=== PATIENT | female | born 1965 | race Caucasian/White ===

== ENCOUNTER → 2018-02-02 08:15 | Outpatient (CLI) | payer OTHER, SELFPAY ==
--- NOTE | 2018-02-02 08:18 | BI_ITS ---
MAMMOGRAPHY - BILATERAL SCREENING REASON FOR EXAM: Female, 52 years old. Routine annual screening examination. PERTINENT HISTORY: Non-contributory. TECHNIQUE: Digital bilateral breast [place] (3D mammographic acquisition) in the CC and MLO projections. 2-D mediolateral oblique (MLO) and craniocaudad (CC) views of both breasts were obtained. CAD: Full Field Digital Mammography with Computer Added Detection was performed. COMPARISON: Comparison is made with prior examination dated November 02, 2016 and September 23, 2015. FINDINGS: Breast Composition: The breasts are extremely dense, which lowers the sensitivity of mammography. The previously seen well-defined nodular density in the upper retroareolar region of the left breast has increased in size. It presently measures 2.6 cm x 3.1 cm. This was demonstrated to be a cyst on prior sonograms. No other significant abnormalities are identified. BI/SCREENING MAMM (CAD), BILAT IMPRESSION: Increased size of the nodular density in the left breast as described. It presently measures 3.1 cm x 2.6 cm. ASSESSMENT CATEGORY: BIRADS Category 2: Benign. A letter regarding these results will be sent to the patient by the facility within 30 days. Approximately 10% of breast cancers are not detected by mammography. A normal mammogram should not delay biopsy of a clinically suspicious abnormality. [id number] Electronically Signed: Antonio Matthews MD at 13:14 EDT Tel [phone], Service support ,
== END ==
PROVIDERS: Family Provider Family Medicine; PCP Family Medicine; Visit Provider Family Medicine
DX: Z12.31 Encounter for screening mammogram for malignant neoplasm of breast (principal)
CPT/HCPCS: 77063; 77067

== ENCOUNTER → 2018-12-19 13:31 | Outpatient (CLI) | payer OTHER, SELFPAY ==
[2017-11-08 14:00] VITALS: BMI 21.9
--- NOTE | 2018-12-19 13:33 | RAD_ITS ---
STUDY: X-RAY - LEFT SHOULDER REASON FOR EXAM: Female, 53 years old. Pain TECHNIQUE: 4 view(s) of the shoulder. COMPARISON: None. FINDINGS: There is mild degenerative arthrosis of the glenohumeral articulation. There is degenerative arthrosis of the acromioclavicular joint without inferior osseous spur formation. Normal acromion. Normal humeral head and visualized proximal humerus. There is periarticular soft tissue calcification consistent with a calcific tendinitis. Normal visualized pulmonary apex. RAD/Shoulder min 2 Views IMPRESSION: Degenerative arthrosis with evidence of calcific rotator cuff tendinitis. No fracture or suspicious osseous lesion Electronically Signed: Raj Sierra MD at 13:51 EDT , Service support ,
== END ==
PROVIDERS: Family Provider Family Medicine; PCP Family Medicine; Referring Provider Orthopaedic Surgery; Visit Provider Orthopaedic Surgery
DX: S49.92XA Unspecified injury of left shoulder and upper arm, initial encounter (principal); X58.XXXA Exposure to other specified factors, initial encounter; M19.012 Primary osteoarthritis, left shoulder; M75.32 Calcific tendinitis of left shoulder
CPT/HCPCS: 73030

== ENCOUNTER → 2019-03-15 10:05 | Outpatient (CLI) | payer OTHER, SELFPAY ==
--- NOTE | 2019-03-15 10:08 | BI_ITS ---
MAMMOGRAPHY - BILATERAL SCREENING REASON FOR EXAM: Female, 53 years old. Routine annual screening examination. PERTINENT HISTORY: Non-contributory. History of bilateral breast aspirations. TECHNIQUE: Digital bilateral breast ir[place] (3D mammographic acquisition) in the CC and MLO projections. 2-D mediolateral oblique (MLO) and craniocaudad (CC) views of both breasts were obtained. CAD: Full Field Digital Mammography with Computer Added Detection was performed. COMPARISON: Comparison is made with prior study dated February 02, 2018 and November 02, 2016. FINDINGS: Breast Composition: The breasts are extremely dense, which lowers the sensitivity of mammography. There are no dominant masses or suspicious calcifications. The previously seen density in the retroareolar region of the left breast is not seen at this time. No other significant abnormalities are identified. BI/SCREEN MAMM (CAD) W/IRAM BILAT IMPRESSION: Stable bilateral screening mammogram. Yearly follow-up mammogram recommended. (A) ASSESSMENT CATEGORY: BIRADS Category 2: Benign. A letter regarding these results will be sent to the patient by the facility within 30 days. Approximately 10% of breast cancers are not detected by mammography. A normal mammogram should not delay biopsy of a clinically suspicious abnormality. [id number] Electronically Signed: Antonio Matthews, at 9:22 EDT , Service support ,
== END ==
PROVIDERS: Family Provider Family Medicine; PCP Family Medicine; Referring Provider Family Medicine; Visit Provider Family Medicine
DX: Z12.31 Encounter for screening mammogram for malignant neoplasm of breast (principal)
CPT/HCPCS: 77063; 77067

== ENCOUNTER → 2019-08-10 13:59 | Outpatient (CLI) | payer OTHER, SELFPAY ==
[2019-08-10 16:15] LABS: Hemoglobin A1c 5.9 % (4.2-6.3)
[2019-08-10 16:21] LABS: Cholesterol 206 mg/dL (200); High Density Lipoprotein 72 mg/dL; Triglycerides 66 mg/dL; Very Low Density Lipoprotein 13 mg/dL (5-40)
[2019-08-10 16:33] LABS: Hematocrit 43.7 % (37-47); Hemoglobin 14.1 g/dL (12.0-15.0); Mean Corp Hgb Conc 32.3 g/dL (32-36); Mean Corpuscular Hgb 28.7 pg (27.0-32.0); Mean Platelet Vol. 10.7 fl (6.2-12.0); Platelet Count 219 K/mm3 (150-450); RBC Distribution Width CV 13.2 % (11.6-14.6); RBC Distribution Width SD 43.1 fl (35.1-43.9); Red Blood Count 4.91 M/mm3 (4.2-5.4); White Blood Count 5.4 K/mm3 (4.4-11.0)
== END ==
PROVIDERS: Family Provider Family Medicine; PCP Family Medicine; Referring Provider Obstetrics & Gynecology; Visit Provider Obstetrics & Gynecology
DX: R68.82 Decreased libido (principal); L65.9 Nonscarring hair loss, unspecified; R63.5 Abnormal weight gain; R53.83 Other fatigue
CPT/HCPCS: 36415; 80061; 83036; 84443; 85027

== ENCOUNTER → 2019-10-13 08:58 | Outpatient (CLI) | payer OTHER, SELFPAY ==
[2017-11-08 14:00] VITALS: BMI 21.9
--- NOTE | 2019-10-13 09:00 | RAD_ITS ---
STUDY: X-RAY - RIGHT ANKLE REASON FOR EXAM: Female, 54 years old. MEDIAL ANKLE PAIN, NKI EXAM DESCRIPTION: Right ankle CLINICAL HISTORY: 54 years Female, MEDIAL ANKLE PAIN, NKI COMPARISON: None. FINDINGS: Studies of the right ankle in three projections shows no evidence of fracture, dislocation, or bony destruction. RAD/Ankle min 3 Views IMPRESSION: Normal right ankle. Electronically Signed: Burak Hiral, at 9:24 EST Tel , Service support ,
== END ==
PROVIDERS: PCP Family Medicine; Referring Provider Physician Assistant; Visit Provider Physician Assistant
DX: M25.571 Pain in right ankle and joints of right foot (principal)
CPT/HCPCS: 73610

== ENCOUNTER → 2020-04-29 07:39 | Outpatient (CLI) | payer OTHER, SELFPAY ==
[2019-10-13 09:47] VITALS: BMI 21.9
--- NOTE | 2020-04-29 07:45 | CT_ITS ---
STUDY: CT BRAIN WITHOUT CONTRAST REASON FOR EXAM: Female, 55 years old. HEADACHES, INTERMITTENTLY SMELLS SMOKE RADIATION DOSAGE (If Supplied By Facility): CTDIvol = ( 44.99 ) mGy, DLP = ( 745.49 ) mGycm TECHNIQUE: Transaxial CT imaging of the brain was performed without administration of intravenous contrast material. Individualized dose optimization techniques were used for this CT. COMPARISON: No relevant priors. FINDINGS: Normal soft tissue structures. Normal calvarium. Normal size ventricles and extra-axial spaces for the patient''s age. Normal white matter tracts of the cerebral hemispheres. There are small punctate calcifications of the basal ganglia which are seen in the aging brain as a normal variant. Normal brainstem. Normal cerebellum. There is no intracranial hemorrhage. There are no findings of an acute ischemic infarction. Normal visualized paranasal sinuses. CT/Brain/Head without Contrast IMPRESSION: Normal unenhanced CT scan of the brain. Electronically Signed: Antonio Mattehws, at 8:29 EDT , Service support ,
--- NOTE | 2020-04-29 08:01 | BI_ITS ---
MAMMOGRAPHY - BILATERAL SCREENING REASON FOR EXAM: Female, 55 years old. Routine annual screening examination. PERTINENT HISTORY: Non-contributory. History of prior bilateral breast aspirations. TECHNIQUE: Digital bilateral breast ir[place] (3D mammographic acquisition) in the CC and MLO projections. 2-D mediolateral oblique (MLO) and craniocaudad (CC) views of both breasts were obtained. CAD: Full Field Digital Mammography with Computer Added Detection was performed. COMPARISON: Comparison is made with prior study dated 03/15/2019 and 02/02/2018. FINDINGS: Breast Composition: The breasts are extremely dense, which lowers the sensitivity of mammography. There are no dominant masses or suspicious calcifications. No other significant abnormalities are identified. There has been no significant change since the prior study. BI/SCREEN MAMM (CAD) W/IRAM BILAT IMPRESSION: Stable bilateral screening mammogram. Yearly follow-up mammogram recommended. (A) ASSESSMENT CATEGORY: BIRADS Category 1: Negative. A letter regarding these results will be sent to the patient by the facility within 30 days. Approximately 10% of breast cancers are not detected by mammography. A normal mammogram should not delay biopsy of a clinically suspicious abnormality. [id number] Electronically Signed: Antonio Matthews, at 11:01 EDT , Service support ,
== END ==
PROVIDERS: PCP Family Medicine; Referring Provider Family Medicine; Visit Provider Family Medicine
DX: Z12.31 Encounter for screening mammogram for malignant neoplasm of breast (principal); R51 Headache
CPT/HCPCS: 70450; 77063; 77067

== ENCOUNTER → 2020-08-06 10:28 | Outpatient (CLI) | payer OTHER, SELFPAY ==
[2020-08-06 09:30] VITALS: BMI 25.7
[2020-08-06 11:22] LABS: Hematocrit 43.9 % (37-47); Mean Corp Hgb Conc 31.9 g/dL (32-36); Mean Corpuscular Hgb 28.9 pg (27.0-32.0); Mean Corpuscular Volume 90.7 fL (81-99); Mean Platelet Vol. 10.2 fl (6.2-12.0); Platelet Count 233 K/mm3 (150-450); RBC Distribution Width CV 13.5 % (11.6-14.6); RBC Distribution Width SD 45.3 fl (35.1-43.9); Red Blood Count 4.84 M/mm3 (4.2-5.4); White Blood Count 5.6 K/mm3 (4.4-11.0)
[2020-08-06 11:58] LABS: ALB/GLOB Ratio 1.1 RATIO (0.9-2.4); AST(SGOT) 20 U/L (15-37); Alanine Aminotransfer ALT/SGPT 36 U/L (13-56); Albumin, Serum 4.2 g/dL (3.2-5.0); Alkaline Phosphatase 77 U/L (45-117); Anion Gap 5 (5-15); BUN 19 mg/dL (7-18); BUN/Creat Ratio 26.2 RATIO (10-20); Calcium,Total 8.6 mg/dL (8.5-10.1); Chloride 107 mmol/L (98-107); Creatinine, Serum 0.72 mg/dL (0.55-1.02); EST Glomerular Filtration Rate 88 mL/min (>60); Est Glom Filt Rate - Afr Amer 107 mL/min (>60); Globulin 3.7 g/dL (2.2-4.2); Glucose 93 mg/dL (74-106); Potassium 4.1 mmol/L (3.5-5.1); Protein, Total 7.9 g/dL (6.4-8.2); Sodium Level 141 mmol/L (136-145); Thyroid Stim Hormone (TSH) 1.94 uIU/mL (0.358-3.74)
== END ==
PROVIDERS: PCP Family Medicine; Referring Provider Psychiatry & Neurology Neurology; Visit Provider Psychiatry & Neurology Neurology
DX: G43.909 Migraine, unspecified, not intractable, without status migrainosus (principal)
CPT/HCPCS: 36415; 80053; 84443; 85027

== ENCOUNTER → 2020-08-23 13:13 | Outpatient (CLI) | payer OTHER, SELFPAY ==
[2020-08-06 09:30] VITALS: BMI 25.7
--- NOTE | 2020-08-23 13:19 | MRI_ITS ---
STUDY: MRI BRAIN WITH AND WITHOUT CONTRAST REASON FOR EXAM: Female, 55 years old. H/A, olfactory auras x 2 years TECHNIQUE: Standardized multiplanar fat and water weighted pulse sequences were obtained. 12ml Dotarem via IV was administered for the contrast portion of the examination. COMPARISON: 07/01/2012 FINDINGS: Normal size of the ventricles and extra-axial spaces for the patient''s age. Normal white matter tracts of the supratentorial brain. There is no evidence for recent intracranial ischemia or other cause of cytotoxic edema on diffusion weighted imaging (DWI). Normal T2* images of the brain without demonstrated susceptibility artifact. There is no demonstrated hemosiderin stain. Normal bilateral basal ganglia. Normal thalami. There is no extra-axial fluid accumulation. Normal flow voids within the major intracranial circulation suggesting patency by spin echo criteria. Normal venous enhancement. There is no enhancing intra-axial or extra-axial abnormality. Normal sella turcica, pituitary gland, infundibular stalk, optic chiasm and hypothalamus. Normal tectal plate and pineal gland. Normal midbrain, pippa and medulla. Normal cerebellum. Normal basal cisterns. Normal bilateral temporal bones. Normal bilateral internal auditory canals. No demonstrated orbital abnormality, within the constraints of a routine brain study. Normal visualized paranasal sinuses. Normal calvarium and skull base. Normal visualized soft tissue structures. Normal visualized upper cervical spine. MRI/Brain W/WO Contrast IMPRESSION: Normal unenhanced and enhanced MRI of the brain. Electronically Signed: Charles Tobar MD at 15:11 EST Tel , Service support ,
== END ==
PROVIDERS: PCP Family Medicine; Referring Provider Psychiatry & Neurology Neurology; Visit Provider Psychiatry & Neurology Neurology
DX: R43.1 Parosmia (principal); R51.9 Headache, unspecified
CPT/HCPCS: 70553; A9575

== ENCOUNTER → 2020-09-27 06:24 | Outpatient (CLI) | payer OTHER, SELFPAY ==
[2020-08-06 09:30] VITALS: BMI 25.7
--- NOTE | 2020-09-27 08:30 | TELEMED_ITS ---
[facility] has confirmed receipt of a request for visit. This document confirms receipt of the order initiating the consult. To find the results of the consultation, please view the patient's reports for the scanned Telemed Consult.
== END ==
PROVIDERS: PCP Family Medicine; Referring Provider Psychiatry & Neurology Neurology; Visit Provider Psychiatry & Neurology Neurology
DX: R43.1 Parosmia (principal); R51.9 Headache, unspecified
CPT/HCPCS: 95819

== ENCOUNTER 2021-09-08 14:18 | Outpatient (CLI) | payer BC, SELFPAY ==
--- NOTE | 2021-09-08 14:20 | BI_ITS ---
MAMMOGRAPHY - BILATERAL SCREENING REASON FOR EXAM: Female, 56 years old. Routine annual screening examination. PERTINENT HISTORY: Non-contributory. History of prior right breast biopsy in prior bilateral breast aspiration. TECHNIQUE: Digital bilateral breast ir[place] (3D mammographic acquisition) in the CC and MLO projections. 2-D mediolateral oblique (MLO) and craniocaudad (CC) views of both breasts were obtained. CAD: Full Field Digital Mammography with Computer Added Detection was performed. COMPARISON: Comparison is made with prior examination dated 04/29/2020 and 03/15/2019. FINDINGS: Breast Composition: The breasts are extremely dense, which lowers the sensitivity of mammography. There are no dominant masses or suspicious calcifications. No other significant abnormalities are identified. There has been no significant change since the prior study. BI/SCRN MAMM (CAD)W/IRAM BILAT IMPRESSION: Stable bilateral screening mammogram. Yearly follow-up mammogram recommended. (A) ASSESSMENT CATEGORY: BIRADS Category 1: Negative. A letter regarding these results will be sent to the patient by the facility within 30 days. Approximately 10% of breast cancers are not detected by mammography. A normal mammogram should not delay biopsy of a clinically suspicious abnormality. [id number] Electronically Signed: Antonio Matthews MD at 20:24 EST , Service support ,
== END 2021-09-08 23:59 | disposition short-term general hospital (02) ==
LOC: OPBI 14:18
PROVIDERS: PCP Family Medicine; Visit Provider Family Medicine
DX: Z12.31 Encounter for screening mammogram for malignant neoplasm of breast (principal)
CPT/HCPCS: 77063; 77067

== ENCOUNTER → 2022-12-31 | Outpatient (CLI) | payer BC, SELFPAY ==
[2022-12-31 12:35] LABS: Absolute Lymphocyte Count 1.89 X10^3/uL (0.83-4.51); Basophil# 0.02 X10^3/uL; Basophil% 0.5 % (0-1); Eosinophil# 0.07 X10^3/uL; Eosinophils% 1.6 % (0-5); Hemoglobin 13.6 g/dL (12.0-15.0); Lymphocyte # 1.89 X10^3/ul (0.83-4.51); Lymphocyte % 42.8 % (19-41); Mean Corp Hgb Conc 31.6 g/dL (32-36); Mean Corpuscular Hgb 29.1 pg (27.0-32.0); Mean Corpuscular Volume 92.1 fL (81-99); Monocyte# 0.43 X10^3/uL; Monocyte% 9.7 % (0-10); NRBC Flagged by Analyzer 0 % (0-5); Neutrophil % 45.2 % (47-70); Platelet Count 240 K/mm3 (150-450); RBC Distribution Width CV 13.9 % (11.6-14.6); RBC Distribution Width SD 47.3 fl (35.1-43.9); Red Blood Count 4.67 M/mm3 (4.2-5.4); White Blood Count 4.4 K/mm3 (4.4-11.0)
[2022-12-31 12:57] LABS: ALB/GLOB Ratio 1.2 RATIO (0.9-2.4); AST(SGOT) 22 U/L (15-37); Alanine Aminotransfer ALT/SGPT 39 U/L (13-56); Albumin, Serum 4.3 g/dL (3.2-5.0); Alkaline Phosphatase 82 U/L (45-117); Anion Gap 5 (5-15); BUN 20 mg/dL (7-18); BUN/Creat Ratio 26.4 RATIO (10-20); Calcium,Total 9.1 mg/dL (8.5-10.1); Chloride 108 mmol/L (98-107); Cholesterol 202 mg/dL (200); Creatinine, Serum 0.76 mg/dL (0.55-1.02); EST Glomerular Filtration Rate 83 mL/min (>60); Est Glom Filt Rate - Afr Amer 101 mL/min (>60); Free T3 2.7 pg/mL (2.18-3.98); Globulin 3.7 g/dL (2.2-4.2); Glucose 95 mg/dL (74-106); High Density Lipoprotein 64 mg/dL; Sodium Level 141 mmol/L (136-145); T4 Free Direct 0.95 ng/dL (0.76-1.46); Thyroid Stim Hormone (TSH) 1.04 uIU/mL (0.358-3.74); Triglycerides 83 mg/dL; Very Low Density Lipoprotein 17 mg/dL (5-40)
[2022-12-31 13:12] LABS: Microalbumin,Random Urine 42.6 mg/L (NO RANGE EST.); Microalbumin:Creatinine Ratio 25.2 mg/g CRE (<30 mg/g CRE)
== END | disposition home or self-care (01) ==
LOC: BFHLAB 10:30
PROVIDERS: PCP Family Medicine; Referring Provider Family Medicine; Visit Provider Family Medicine
DX: Z51.81 Encounter for therapeutic drug level monitoring (principal); R53.83 Other fatigue; E78.5 Hyperlipidemia, unspecified; R00.9 Unspecified abnormalities of heart beat; R03.0 Elevated blood-pressure reading, without diagnosis of hypertension
CPT/HCPCS: 36415; 80053; 80061; 82043; 82570; 84439; 84443; 84481; 85025

== ENCOUNTER → 2023-01-12 | Outpatient (CLI) | payer BC, SELFPAY ==
--- NOTE | 2023-01-12 07:17 | BI_ITS ---
MAMMOGRAPHY - BILATERAL SCREENING REASON FOR EXAM: Female, 57 years old. Routine annual screening examination. PERTINENT HISTORY: Non-contributory. History of prior bilateral breast aspirations. TECHNIQUE: Digital bilateral breast ir[place] (3D mammographic acquisition) in the CC and MLO projections. 2-D mediolateral oblique (MLO) and craniocaudad (CC) views of both breasts were obtained. CAD: Full Field Digital Mammography with Computer Added Detection was performed. COMPARISON: Comparison is made with prior study dated September 08, 2021 and April 29, 2020. FINDINGS: Breast Composition: The breasts are extremely dense, which lowers the sensitivity of mammography. There are no dominant masses or suspicious calcifications. No other significant abnormalities are identified. There has been no significant change since the prior study. BI/SCRN MAMM (CAD)W/IRAM BILAT IMPRESSION: Stable bilateral screening mammogram. Yearly follow-up mammogram recommended. (A) ASSESSMENT CATEGORY: BIRADS Category 1: Negative. A letter regarding these results will be sent to the patient by the facility within 30 days. Approximately 10% of breast cancers are not detected by mammography. A normal mammogram should not delay biopsy of a clinically suspicious abnormality. [id number] Electronically Signed: Antonio Matthews MD at 11:00 EDT ,
== END | disposition home or self-care (01) ==
LOC: OPBI 07:15
PROVIDERS: PCP Family Medicine; Referring Provider Family Medicine; Visit Provider Family Medicine
DX: Z12.31 Encounter for screening mammogram for malignant neoplasm of breast (principal)
CPT/HCPCS: 77063; 77067

== ENCOUNTER → 2024-01-12 | Outpatient (CLI) | payer BC, SELFPAY ==
[2024-01-12 12:44] LABS: Absolute Lymphocyte Count 1.49 X10^3/uL (0.83-4.51); Absolute Neutrophil Count 2.2 X10^3/uL (2.0-7.7); Basophil# 0.03 X10^3/uL; Basophil% 0.7 % (0-1); Eosinophil# 0.07 X10^3/uL; Eosinophils% 1.6 % (0-5); Hematocrit 42.7 % (37-47); Hemoglobin 13.6 g/dL (12.0-15.0); Lymphocyte # 1.49 X10^3/ul (0.83-4.51); Mean Corp Hgb Conc 31.9 g/dL (32-36); Mean Corpuscular Hgb 29.1 pg (27.0-32.0); Mean Corpuscular Volume 91.2 fL (81-99); Mean Platelet Vol. 10.5 fl (6.2-12.0); Monocyte# 0.43 X10^3/uL; Monocyte% 10.1 % (0-10); NRBC Flagged by Analyzer 0 % (0-5); Neutrophil # 2.23 X10^3/uL (2.7-7.7); Neutrophil % 52.4 % (47-70); Platelet Count 248 K/mm3 (150-450); RBC Distribution Width CV 13.8 % (11.6-14.6); RBC Distribution Width SD 46.4 fl (35.1-43.9); Red Blood Count 4.68 M/mm3 (4.2-5.4); White Blood Count 4.3 K/mm3 (4.4-11.0)
[2024-01-12 13:29] LABS: ALB/GLOB Ratio 1.2 RATIO (0.9-2.4); AST(SGOT) 22 U/L (15-37); Alanine Aminotransfer ALT/SGPT 34 U/L (13-56); Albumin, Serum 4.2 g/dL (3.2-5.0); Alkaline Phosphatase 77 U/L (45-117); Anion Gap 8 (5-15); BUN 17 mg/dL (7-18); BUN/Creat Ratio 20.8 RATIO (10-20); Calcium,Total 8.9 mg/dL (8.5-10.1); Chloride 108 mmol/L (98-107); Creatinine, Serum 0.82 mg/dL (0.55-1.02); EST Glomerular Filtration Rate 76 mL/min (>60); Est Glom Filt Rate - Afr Amer 92 mL/min (>60); Globulin 3.6 g/dL (2.2-4.2); Glucose 95 mg/dL (74-106); Potassium 3.8 mmol/L (3.5-5.1); Protein, Total 7.8 g/dL (6.4-8.2); Sodium Level 141 mmol/L (136-145)
[2024-01-12 15:44] LABS: Vitamin D,25 Hydroxy 52.5 ng/mL
== END | disposition home or self-care (01) ==
LOC: BFHLAB 10:09
PROVIDERS: PCP Family Medicine; Referring Provider Family Medicine; Visit Provider Family Medicine
DX: Z01.818 Encounter for other preprocedural examination (principal); E55.9 Vitamin D deficiency, unspecified; Z51.81 Encounter for therapeutic drug level monitoring
CPT/HCPCS: 36415; 80053; 82306; 85025

== ENCOUNTER → 2024-02-02 | Outpatient (CLI) | payer BC, OTHER, SELFPAY ==
--- NOTE | 2024-02-02 07:10 | BI_ITS ---
MAMMOGRAPHY - BILATERAL SCREENING REASON FOR EXAM: Female, 58 years old. Routine annual screening examination. PERTINENT HISTORY: Non-contributory. History of prior breast aspirations. TECHNIQUE: Digital bilateral breast ir[place] (3D mammographic acquisition) in the CC and MLO projections. 2-D mediolateral oblique (MLO) and craniocaudad (CC) views of both breasts were obtained. CAD: Full Field Digital Mammography with Computer Added Detection was performed. COMPARISON: Comparison is made with prior study of January 12, 2023 and September 08, 2021. FINDINGS: Breast Composition: The breasts are extremely dense, which lowers the sensitivity of mammography. There are no dominant masses or suspicious calcifications. No other significant abnormalities are identified. There has been no significant change since the prior study. BI/SCRN MAMM (CAD)W/IRAM BILAT IMPRESSION: Stable bilateral screening mammogram. Yearly follow-up mammogram recommended. (A) ASSESSMENT CATEGORY: BIRADS Category 1: Negative. A letter regarding these results will be sent to the patient by the facility within 30 days. Approximately 10% of breast cancers are not detected by mammography. A normal mammogram should not delay biopsy of a clinically suspicious abnormality. [id number] Electronically Signed: Antonio Matthews MD at 8:25 EDT ,
== END | disposition home or self-care (01) ==
LOC: OPBI 07:07
PROVIDERS: PCP Family Medicine; Referring Provider Family Medicine; Visit Provider Family Medicine
DX: Z12.31 Encounter for screening mammogram for malignant neoplasm of breast (principal)
CPT/HCPCS: 77063; 77067

== ENCOUNTER 2024-02-11 09:20 | Day surgery (SDC) | payer BC, OTHER, SELFPAY ==
[2024-02-05 10:30] LABS: Magnesium 2.4 mg/dL (1.6-2.6)
[2024-02-11] VITALS (8 sets, daily range): BP systolic 120–141; BP diastolic 69–91; PULSE 58–76; RESP 14–62; TEMP 36.1–36.6; O2SAT 93–100; BMI 25.3
--- NOTE | 2024-02-11 09:40 | PCM.PRE.AN2 ---
ASA Classification* ASA Classification ASA Classification: 2 Assessment & Plan Anesthesia* Anesthesia Assessment Anesthesia Assessment: Discussed sedation and/or anesthesia options, risks, benefits, and alternatives with patient/parents/legal guardian/POA. Questions invited. The patient/parents/legal guardian/POA seems to understand and agrees to proceed with anesthesia plan. Reviewed the physical assessment, medical history, allergy history and patient home medications list prior to surgery/procedure/anesthetic and documented any changes. Performed airway and anesthesia risk assessments. Anesthesia Type Anesthesia Type: General (see written pre anesthesia record for full assessment) Anesthesia Focused Assessment* Airway Assessment Mouth opens: >3 cm Mallampati Score: II Focused Labs Anesthesia Preop lab: CBC WBC 4.3 K/mm3 (4.4-11.0) L 01/12/24 10:11 RBC 4.68 M/mm3 (4.2-5.4) 01/12/24 10:11 Hgb 13.6 g/dL (12.0-15.0) 01/12/24 10:11 Hct 42.7 % (37-47) 01/12/24 10:11 Plt Count 248 K/mm3 (150-450) 01/12/24 10:11 CHEMISTRY Potassium 3.8 mmol/L (3.5-5.1) 01/12/24 10:11 Sodium 141 mmol/L (136-145) 01/12/24 10:11 Magnesium 2.4 mg/dL (1.6-2.6) 02/05/24 09:56 BUN 17 mg/dL (7-18) 01/12/24 10:11 Creatinine 0.82 mg/dL (0.55-1.02) 01/12/24 10:11 Glucose 95 mg/dL (74-106) 01/12/24 10:11 TSH 1.04 uIU/mL (0.358-3.74) 12/31/22 10:30 COAG Pre-Assessment Diagnosis/Proposed Procedure Planned Operative Procedure(s): RIGHT FOOT MIDTARSAL JOINT ARTHRODESIS WITH CAPSULOTOMY OF FIRST METATARSAL PHALANGEAL JOINT,HARVEST OF CALCANEAL BONE GRAFT,MANUAL STRESS VIEWS,KOREY OSTEOTOMY OF SECOND METATARSAL AND SECOND PROXIMAL INTERPHALANGEAL JOINT ARTHRODESIS Anesthesia History 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 When Was Last Pacemaker Check QUESTION #4 FULL TEXT: You/Your Family Experience fever (hyperthermia) with Anesthesia Last Oral Intake Last Oral intake: Last Oral Intake NPO since Meds taken in AM with sips of water? Meds patient instructed to take am of surgery PONV PONV - production control expert: PONV - production control expert Female Yes 02/04/24 13:12 HX of Motion Sickness No 02/04/24 13:12 HX of N/V After Surgery No 02/04/24 13:12 Non-Smoker Yes 02/04/24 13:12 Duration of Surgery greater Yes 02/04/24 13:12 than 60 minutes Number of Risk Factors 3 02/04/24 13:12 PONV Score Moderate Risk 02/04/24 13:12 Height & Weight Height & Weight: Anesthesia: Height & Weight Height 5 ft 3 in 02/10/24 07:37 Weight: 61.235 kg 02/10/24 07:37 Respiratory Assessment Respiratory Assessment - production control expert: Respiratory Tract Infection Hx - production control expert Hx Respiratory Tract Infection No 02/04/24 13:12 STOP Sleep Apnea STOP Sleep Apnea - production control expert: STOP Sleep Apnea - production control expert Hx Hypertension Yes: CONTROLLED WITH MED 02/04/24 13:12 Hx Sleep Apnea No 02/04/24 13:12 CPAP BIPAP Do you snore loudly (louder No 02/04/24 13:12 than talking or can be heard Do you often feel tired/ No 02/04/24 13:12 fatigued/ sleepy during daytime? Has anyone observed you stop No 02/04/24 13:12 breathing during sleep? STOP Results Negative 02/04/24 13:12 QUESTION #5 FULL TEXT : Do you snore loudly (louder than talking or can be heard through closed doors)? 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 Specify any problems Hx of Preganancy in last 3 No 02/04/24 13:12 Months Nurse Filling Out Transfusion DSCHRIBER 02/04/24 13:12 & Questions: Date: 02/04/24 02/04/24 13:12 Time: 13:13 02/04/24 13:12 Patient unable to answer at this time (ie. confused, unrespo /Reproduction History /Reproductive History - production control expert: /Reproductive Hx- production control expert Hx Now No 02/04/24 13:12 Gestational Age (in weeks): EDC: Hx Hx Para Hx Section SAB No 02/04/24 13:12 Active Medications Active Medications: Current Medications Generic Name Dose Route Start Last Admin Trade Name Freq PRN Reason Stop Dose Admin Acetaminophen 1,000 mg 02/11/24 11:30 Acetaminophen 500 Mg Tablet PO 02/11/24 11:31 X1 ONE Gabapentin 600 mg 02/11/24 11:30 Gabapentin 600 Mg Tablet PO 02/11/24 11:31 X1 ONE Cefazolin Sodium 2 gm/ Sodium 110 mls @ 150 mls/hr 02/11/24 11:30 Chloride IV 02/11/24 12:13 PREOP ONE Magnesium Sulfate 1 gm/ 102 mls @ 408 mls/hr 02/11/24 11:30 Dextrose IV 02/11/24 11:44 X1 ONE Lactated Ringer's 1,000 mls @ 15 mls/hr 02/11/24 09:30 IV .Q48H HUGH Insulin Human Lispro 1 - 6 unit 02/11/24 11:30 Insulin Lispro 100 Unit/Ml Insuln.Pen SC 02/11/24 17:00 Q4H PRN PRN BG>/= 180, SEE PROTOCOL Protocol PFSH Medical History Wears contact lenses Wears glasses Post-menopausal Anemia Non-smoker History of stress test Hypertension Home Medications ?Medication ?Instructions ?Recorded ?Last Taken ?Type biotin 1 mg capsule 2 mg PO DAILY 08/06/20 Unknown History multivitamin 1 tab PO DAILY 12/11/22 Unknown History ascorbic acid (vitamin C) 500 mg 500 mg PO DAILY 02/04/24 Unknown History tablet,extended release (C-500) cholecalciferol (vitamin D3) 25 25 mcg PO DAILY 02/04/24 Unknown History mcg (1,000 unit) capsule (Vitamin D3) coenzyme Q10 100 mg capsule 100 mg PO DAILY 02/04/24 Unknown History (CoQ-10) losartan 50 mg-hydrochlorothiazide 1 tab PO DAILY 02/04/24 Unknown History 12.5 mg tablet magnesium 250 mg tablet 250 mg PO DAILY 02/04/24 Unknown History zinc gluconate 50 mg tablet 50 mg PO DAILY 02/04/24 Unknown History Allergy/AdvReac Type Severity Reaction Status Date / Time Sulfa (Sulfonamide Allergy unknown Verified 02/04/24 13:07 Antibiotics) Family History Mother Hypertension Surgical History History of partial hysterectomy Social History Smoking Status: Never smoker Electronic Cigarette Use: not used second hand exposure: No alcohol intake: never substance use type: does not use Review of Systems (Anesthesia) ROS Narrative System reviewed and no additional complaints, except as documented.
[2024-02-11] MEDS: Lactated Ringers 1,000 ML 15 ML IV (09:56)
[2024-02-11] MEDS: Gabapentin 600 MG Tablet PO (09:57)
[2024-02-11] MEDS: Magnesium 1 GM over 15 mins IV (09:57)
[2024-02-11] MEDS: Acetaminophen 500 MG Tablet 1000 MG PO (09:58)
[2024-02-11] MEDS: Insulin Lispro 100 UNIT/ML INSULN.PEN SC (10:06)
--- NOTE | 2024-02-11 10:30 | RAD_ITS ---
STUDY: X-RAY - RIGHT FOOT CLINICAL: Female, 58 years old. Midfoot arthrodesis. Intraoperative digital documentation views. TECHNIQUE: 9 intraoperative digital documentation view(s) of the foot. COMPARISON: Foot x-rays dated February 20, 2004 FINDINGS: Intraoperative digital documentation images show fusion at the PIP joint of the second digit. RAD/Foot min 3 Views IMPRESSION: Intraoperative digital documentation views. Electronically Signed: Wilson Lugo MD at 15:07 EDT ,
[2024-02-11] MEDS: Cefazolin 2 GM in 0.9% Normal Saline (100mL Bag) 100 ML IV (12:05)
--- NOTE | 2024-02-11 12:06 | OP.PCM_ITS ---
Problems Associated Problem List Diagnoses (1) Hallux valgus (acquired), right foot: (2) Primary osteoarthritis, right ankle and foot: (3) Other deformities of toe(s) (acquired), right foot: (4) Contracture, right foot: (5) Pain in right foot: (6) Chronic pain of toe of right foot: Report of Operation Date of Procedure: 02/11/24 Pre-Operative Diagnosis: 1. Hallux valgus, right foot 2. Osteoarthritis, right foot and ankle 3. Other deformity of toes, second digit, right foot 4. Contracture, right foot 5. Pain, right foot 6. Chronic pain of toe, right foot Post-Operative Diagnosis: 1. Hallux valgus, right foot 2. Osteoarthritis, right foot and ankle 3. Other deformity of toes, second digit, right foot 4. Contracture, right foot 5. Pain, right foot 6. Chronic pain of toe, right foot Surgery/Procedure Performed:: 1. Arthrodesis of midtarsal joint, first tarsometatarsal joint, right foot 2. Capsulotomy first metatarsophalangeal joint, right foot 3. Sentinel of calcaneal bone graft, right foot 4. Stress views, right foot 5. Second digit proximal interphalangeal joint arthrodesis, right foot Description of Surgical Findings:: 1. Good anatomic reduction of hallux valgus and abductor deformity, right foot 2. Good reduction and correction with apposition of the second digit hammertoe correction, right foot Surgeon: Demetris Rivera orthopedic coder: Inocencia Cali Type of Anesthesia: Block,Regional, General and Local Anesthesiologist: Tripp Folres Special Medications: Per anesthesia Specimen's removed: None Drains: None Estimated Blood Loss (mL): 30 mL Fluids Replaced: Per anesthesia Description of Procedure: Indications For Operation: Ms. Hall is a 58-year-old female who was admitted to [facility] for elective bunion corrective and hammer toe surgery to the right foot. Patient is well-known to my practice and was seen in office for surgical consultation with all risk and benefits discussed with the patient in great detail. Patient originally presented with chronic pain with valgus deformity and hammer toe 2nd digit to her right foot. Patient has failed all conservative methods consisting of shoe gear modification, treatment with padding, strapping and other types of treatment consisting of oral anti-inflammatories without success. Patient has failed all conservative treatment at this time. We are recommending surgical intervention. The patient does understand all risk, benefits and complications for the surgical procedure. All questions have been answered to the patient with great detail. Due to right lower extremity deformity it has been deemed necessary at this time to take the patient to the operating room to perform the above procedure to decrease her constant pain. The nature of the problem, anticipated procedures, postop recovery/convalences and risk/complications include but not limited to infection, wound healing complications, digital amputation, hypertrophic scarring, numbness, tingling, chronic pain, CRPS, over and under correction, recurrence of deformity, DVT and or PE and the need for further surgery have been discussed in great detail with the patient. All questions have been answered to the patient's satisfaction. There are no guarantees given as to the outcome of the procedure. Description of Procedure: Under mild sedation, the patient was brought into the operating room and placed on the operating table in supine position. Once the patient was under general anesthesia with laryngeal mask airway, the right lower extremity was blocked using approximately 10 cc 0.5% Marcaine plain to the saphenous nerve. Patient has received popliteal block per anesthesia and holding prior to the procedure. Please see anesthesia notes for further detail. Next, a well-padded thigh tourniquet was applied to the right lower extremity. Next, the right lower extremity was prepped and draped in normal aseptic manner. Next, a timeout was then undertaken verifying the correct patient, extremity, visibility of preoperative markings, availability of the equipment. Next, attention was directed to the right lower extremity. Using a 6 inch Esmarch, right lower extremity was exsanguinated and elevated to 60 degrees for 1 minute. Next, the tourniquet was inflated to 275 mmHg. Procedure #1, Sentinel of calcaneal bone graft, right foot (CPT code: 65960) Next, attention was directed to the lateral aspect of the right calcaneus. Using a #15 blade, a full-thickness incision, approximately 1 cm, was made down to bone without incident. Continued blunt dissection was carried out with curved hemostats. Using the [employer] 7 mm bone graft harvester, calcaneal bone harvest less than than 5 cc was made, then removed from the calcaneus and passed the back table to be used later in the case, for the first tarsometatarsal joint arthrodesis procedure. The incision was flushed with copious farzana of normal saline. The skin was reapproximated and closed using 3-0 nylon in simple interrupted suture technique. Procedure #2, first tarsal metatarsal joint arthrodesis, right foot (CPT code: 02669)/procedure #3, capsulotomy of the first metatarsal phalangeal joint (through a separate incision), right foot (CPT code: 03727) Next, attention was directed to the dorsal aspect of the right foot. Using fluoroscopy, the first tarsometatarsal joint was visualized. A longitudinal 3.5 cm incision with a #15 blade was made just medial to the extensor hallucis longus tendon. The incision was made down to the periosteum with care to retract the tendon laterally. The periosteum was reflected. The first tarsometatarsal joint was exposed and identified. Careful dissection was carried down to the level of the first tarsometatarsal joint as well as in the lateral space between the first and second metatarsal. The ligaments were then released at the tarsometatarsal joint with planing with sagittal saw. After planing was performed, the plantar ligaments were released with the Tritome. Next, through a separate incision, a capsulotomy was performed at the lateral aspect of the first metatarsal phalangeal joint. A separate incision approximately 1 cm was made along the lateral aspect of the first metatar sophalangeal joint. Blunt dissection was carried down to the level of the first metatarsophalangeal joint. Using [employer] medical speed release tool, this was inserted laterally into the joint with joint fluid being exposed but inserted, pushing the fibular suspensory ligament into the space and releasing it completely. There was evidence of excellent release of the first metatarsophalangeal joint, and the metatarsal was able to be pushed laterally without soft tissue force imposing on it. The sesamoids were able to be retracted back into position which was confirmed on the large C-arm fluoroscopy. A capsulotomy incision was flushed with copious farzana normal saline and closed with 3-0 nylon in simple interrupted suture technique. Next, attention was then redirected back to the first metatarsophalangeal joint, the all-in-one positioner was inserted, positioning the first metatarsal into corrected position. Positioning of the cuts were confirmed with large C-arm fluoroscopy. Cuts were then made with the all-in-one device using the sagittal saw and provided blade by [employer]. The compression/distractor was applied. The joint was distracted and the cuts along the base of the first metatarsal and first cuneiform removed. Next, the joint was prepped using a fenestration with a 2-0 drill bit along the first cuneiform and base of the first metatarsal. Next, the Sentinel of calcaneal bone graft autograft was then packed in the first tarsometatarsal joint. At this point, the positioner was reapplied, compression/distractor was closed down and the fulcrum was then inserted on the lateral aspect of the base of the first metatarsal. Dorsiflexion of the hallux was then performed pushing the metatarsal and tarsometatarsal joint into place, pinning with 2 smooth K wires and crossing fashion technique. Next, orthogonal plating was applied using (x2) 13 mm spleed plates by [employer]. Procedure #4, Stress views, right foot (CPT code: 32659) Next, stress views were then performed by squeezing the first and second interphalangeal joint and the first metatarsophalangeal joint of the right foot. There showed evidence of mild splaying. Next using the cannulated screw system by [employer] a K wire was driven from the first metatarsal to second cuneiform and a 4-0 cannulated 36 mm screw was inserted with excellent position across this area stabilizing the cuneiform and first metatarsal joint as well as its position. Procedure #5, second digit PIPJ arthrodesis, right foot (CPT code: 95042) Next, attention was directed to the dorsal aspect of the PIPJ of the right second digit. Using a sterile skin marker, a longitudinal incision was marked out at the level of the second metatarsal phalangeal joint and proximal anterior phalangeal joint of the right second digit. Using a #15 blade, a full-thickness incision down to subcutaneous tissue was made. Using Sands retractors, the skin was lifted up and out and continued blunt dissection was carried down to the long flexor tendon. Once the flexor tendons was identified a following technique was performed on the medial lateral aspects of the extensor tendon. The tendon was gently released to allow exposure of the PIPJ joint. Once the PIP joint was identified a capsulotomy was performed. The extensor tendon was removed but intact down to the level of the second metatarsal phalangeal joint. The capsule was identified and transected. Care was taken to identify the medial lateral collateral ligaments of the PIPJ of the second digit which were released. Using a pickup and sagittal saw with a #111 blade, the head of the proximal phalanx was removed and passed the back table to be discarded. The base of the intermediate phalanx of the second digit was feathered to remove the articular cartilage to expose the subchondral bone. Using the wire lifter driver provided by the [employer] surgical kit, the appropriate size drill was used to make the commercial airline pilot holes in the base and head of the intermediate and proximal phalanx. The implant was inserted, 10 degree implant per the commercial lease administrator's recommendation with the rep in the room. After securing the 2 bones together there showed excellent apposition across the PIPJ of the second digit. The medial lateral collateral ligaments were really constructed using 4-0 Monocryl and 0 interrupted suture technique. Extensor tendon was secured back to the proximal phalanx and physiological tension using 4-0 Monocryl and open over suture technique. Procedure #6 capsulotomy of the first metatarsophalangeal joint medially through a separate incision, right foot (CPT code: 66282) Next, once looking at intraoperative films and clinically there still showed evidence of a mild increase in JOHNSON angle beyond normal while on the operating room table. At this time is deemed necessary to move forward with a capsulorrhaphy on the medial aspect of the first metatarsophalangeal joint. Using a skin marker the incision was marked over the dorsomedial aspect of the first metatarsophalangeal joint. Using a #15 blade a full-thickness incision down to subcutaneous tissue followed by blunt dissection down to capsule. A capsulorrhaphy was performed via a T shaped incision. Once the capsule was exposed there showed evidence of thickening to the capsule as well as some degeneration to the medial head of the first metatarsal approximately 20%. There also showed evidence of osteoarthritis to the level of the tibial sesamoid. The capsule was reconstructed that showed a more suitable position for correction of a hallux valgus deformity with correcting the JOHNSON angle with a capsulorrhaphy. The incision was flushed with couple farzana normal saline. The capsule was reapproximated and secured with 2-0 Ethibond. Next, the right lower extremity thigh tourniquet was deflated, reperfusion was noted to the right lower extremity instantly. All bleeders were cauterized and ligated as necessary. All open the incisions were flushed with copious normal saline. As stated above the bone graft harvest and capsulotomy, lateral, were reapproximated and closed with 3-0 nylon in simple interrupted suture technique. A stab incision over the second metatarsal was reapproximated closed with 3-0 nylon in simple interrupted suture technique. The capsule of the first tarsometatarsal joint was reapproximated and closed with 3-0 Monocryl and running locking suture technique. The subcutaneous layer was reapproximated and closed with 3-0 Monocryl and running suture technique. The skin was reapproximated and closed with 4-0 Monocryl in subcuticular suture technique. Capsulotomy on the medial incision of the first metatarsal phalangeal joint subcutaneous layer was reapproximated closed with 3-0 Monocryl in buried suture technique. The skin was reapproximated and closed using 3-0 nylon in simple interrupted suture technique. The right lower extremities were cleaned and patted dry. Steri-Strips were applied to the dorsal incision. All incisions were dressed with Betadine soaked Adaptic dry sterile dressing and a 2 layer Bennett AO splint at 90 degrees was applied to the right lower extremity. The patient tolerated the procedure and anesthesia well and apparent satisfactory condition and was transported to the PACU for further monitoring prior to discharge home. Vital signs stable and vascular status intact to all digits bilateral. Post Operative Plan: Weightbearing: No weightbearing to right lower extremity. Full weightbearing to the left lower extremity. Antibiotics: 2 g Ancef DVT Prophylaxis: Aspirin 81 mg twice daily Fraga: None Dressing: Betadine soaked Adaptic, dry sterile dressing and a 2 layer Bennett AO splint at 90 degrees X-Rays: Post-operative films taken on the operating room. Pain Medication: Percocet 5/325, Flexeril 10 mg 3 times daily Follow-up: Patient will follow-up in 1 week to [address] Rivera in private office.
[2024-02-11] MEDS: Bupivacaine 0.5% PF 10 ML VIAL (12:10)
[2024-02-11 12:45] LABS: Bedside Glucose 193 mg/dL (74-106)
[2024-02-11 13:31] LABS: Bedside Glucose 92 mg/dL (74-106)
--- NOTE | 2024-02-11 15:25 | PCM.POST.ANE ---
Anesthesia: Postop Eval I Current Vital Signs Temperature: 97.3 F Pulse Rate: 68 Blood Pressure: 120/80 Respiratory Rate: 16 Pulse Ox: 93 Oxygen Delivery Method: Room Air Assessment Airway patent: Yes Spontaneous unlabored respirations: Yes Mental status: Awake nausea: No Vomiting: No Anesthesia Complication: No Fluid Hydration Crystalloid volume administer (ml): 1,500 Total IV fluid infused: 1,500 Progress Note Anesthesia document: Postop Eval 1 completed: Yes
--- NOTE | 2024-02-11 16:51 | POSTOPAN2_ITS ---
Anesthesia Postop Eval I Sum Postop Eval Completion status Anesthesia document: Postop Eval 1 completed: Yes Anesthesia Postop Eval I Summary Anesthesia Postop Eval I Summary: Anesthesia Postop Eval I: Assessment Summary Airway patent Yes 02/11/24 15:26 [email or web address] Spontaneous unlabored Yes 02/11/24 15:26 [email or web address] respirations Mental status Awake 02/11/24 15:26 [email or web address] nausea No 02/11/24 15:26 [email or web address] Vomiting No 02/11/24 15:26 [email or web address] Anesthesia Postop Eval I: Fluid Summary Crystalloid volume administer 1,500 02/11/24 15:26 [email or web address] (ml) Colloids volume administered ( ml) Blood Product volume administered (ml) Total IV fluid infused 1,500 02/11/24 15:26 [email or web address] Anesthesia Postop Eval I: Summary Notes Anesthesia Complication No 02/11/24 15:26 [email or web address] Anesthesia Complication Comment: Post-operative progress note Anesthesia: Postop Eval II Evaluation Mental status: Awake and Calm Pain Level: 1 nausea: No Vomiting: No Complications Anesthesia Complication: No
--- NOTE | 2024-02-11 16:51 | PCM.POSTANE2 ---
Anesthesia Postop Eval I Sum Postop Eval Completion status Anesthesia document: Postop Eval 1 completed: Yes Anesthesia Postop Eval I Summary Anesthesia Postop Eval I Summary: Anesthesia Postop Eval I: Assessment Summary Airway patent Yes 02/11/24 15:26 [email or web address] Spontaneous unlabored Yes 02/11/24 15:26 [email or web address] respirations Mental status Awake 02/11/24 15:26 [email or web address] nausea No 02/11/24 15:26 [email or web address] Vomiting No 02/11/24 15:26 [email or web address] Anesthesia Postop Eval I: Fluid Summary Crystalloid volume administer 1,500 02/11/24 15:26 [email or web address] (ml) Colloids volume administered ( ml) Blood Product volume administered (ml) Total IV fluid infused 1,500 02/11/24 15:26 [email or web address] Anesthesia Postop Eval I: Summary Notes Anesthesia Complication No 02/11/24 15:26 [email or web address] Anesthesia Complication Comment: Post-operative progress note Anesthesia: Postop Eval II Evaluation Mental status: Awake and Calm Pain Level: 1 nausea: No Vomiting: No Complications Anesthesia Complication: No
== END 2024-02-11 16:15 | disposition home or self-care (01) ==
LOC: SDC 09:20 → AC 09:21
PROVIDERS: Anesthesiology; PCP Family Medicine; Referring Provider Podiatrist Foot & Ankle Surgery; Visit Provider Podiatrist Foot & Ankle Surgery
PROC: (CPT 20900; principal; 2024-02-11 11:15)
DX: M20.11 Hallux valgus (acquired), right foot (principal); M19.071 Primary osteoarthritis, right ankle and foot; G89.29 Other chronic pain; M24.574 Contracture, right foot; I10 Essential (primary) hypertension; Z79.899 Other long term (current) drug therapy
CPT/HCPCS: 20900; 28270; 28740; 28285; 64447; 01470; 36415; 73630; 76000; 82962; 83735; 87077; 87081; C1713; J7120; J2405; J3475

== ENCOUNTER → 2025-01-30 | Outpatient (CLI) | payer BC, OTHER, SELFPAY ==
[2025-01-30 10:06] LABS: Absolute Lymphocyte Count 1.63 X10^3/uL (0.83-4.51); Absolute Neutrophil Count 2.5 X10^3/uL (2.0-7.7); Basophil# 0.02 X10^3/uL; Basophil% 0.4 % (0-1); Eosinophil# 0.07 X10^3/uL; Eosinophils% 1.5 % (0-5); Hematocrit 39.9 % (37-47); Hemoglobin 13.1 g/dL (12.0-15.0); Lymphocyte # 1.63 X10^3/ul (0.83-4.51); Lymphocyte % 35.3 % (19-41); Mean Corp Hgb Conc 32.8 g/dL (32-36); Mean Corpuscular Hgb 29.3 pg (27.0-32.0); Mean Corpuscular Volume 89.3 fL (81-99); Mean Platelet Vol. 10.4 fl (6.2-12.0); Monocyte# 0.44 X10^3/uL; Monocyte% 9.5 % (0-10); NRBC Flagged by Analyzer 0 % (0-5); Neutrophil # 2.45 X10^3/uL (2.7-7.7); Neutrophil % 53.1 % (47-70); Platelet Count 226 K/mm3 (150-450); RBC Distribution Width CV 13.7 % (11.6-14.6); RBC Distribution Width SD 44.9 fl (35.1-43.9); Red Blood Count 4.47 M/mm3 (4.2-5.4); White Blood Count 4.6 K/mm3 (4.4-11.0)
[2025-01-30 14:51] LABS: ALB/GLOB Ratio 1.7 RATIO (0.9-2.4); AST(SGOT) 30 U/L (<=31); Alanine Aminotransfer ALT/SGPT 45 U/L (<=34); Albumin, Serum 4.6 g/dL (3.4-4.8); Alkaline Phosphatase 79 U/L (35-104); Anion Gap 11 (5-15); BUN 18 mg/dL (4-19); BUN/Creat Ratio 23.6 RATIO (10-20); Calcium,Total 9.2 mg/dL (7.6-11.0); Carbon Dioxide 24.8 mmol/L (21.0-32.0); Chloride 105 mmol/L (98-108); Cholesterol 215 mg/dL (<=200); Creatinine, Serum 0.78 mg/dL (0.70-1.20); EST Glomerular Filtration Rate 87 (>60); Globulin 2.7 g/dL (2.2-4.2); Glucose 94 mg/dL (70-99); High Density Lipoprotein 57 mg/dL; Low Density Lipoprotein Calc. 132 mg/dL; Potassium 4.1 mmol/L (3.3-5.1); Protein, Total 7.2 g/dL (5.9-8.4); Sodium Level 141 mmol/L (133-145); Total Bilirubin 0.38 mg/dL (0.00-1.30); Triglycerides 129 mg/dL; Very Low Density Lipoprotein 26 mg/dL (5-40); cholesterol:hdl ratio screen 3.77
--- OUTSIDE RECORDS SUMMARY | 2025-01-30 18:58 | XMS RPT_ITS | CCD ---
Author Organization [facility] Inform ion Partnership [facility] Care Team Providers Care Director Pediatric Name Role Phone Dr. Shankia Nunes Primary Care Provider Dr. Shanika Nunes Referring Provider ANUPAMA Fletcher Attending Provider Demetris Rivera Referring Unavailable Demetris Rivera Attending Unavailable Shanika Nunes Primary Care Unavailable Shanika Nunes Referring Unavailable Shanika Nunes Attending Unavailable Shanika Nunes Primary Care Unavailable Shanika Nunes Primary Care Unavailable Shanika Nunes Attending Unavailable Allergies Allergy Classification Reported Allergen(s) Allergy Type Date of Onset Reaction(s) Facility (2 sources) Sulfonamides (Antibiotic) Allergy to substance 1 unknown [facility] (1 source) Sulfonamides (Antibiotic) Drug allergy (disorder) 4 [facility] Repository Medications Current Medications Medication Drug Class(es) Dates Sig (Normalized) Sig (Original) biotin 1 mg oral capsule (2 sources) Start: 08-06-2020 take 2 mg by mouth once daily Biotin Active 2 MG PO DAILY August 06, 2020 1:00am Alexa (2 sources) Start: 08-06-2020 Alexa Active 1 TABLET PO Q5D August 06, 2020 1:00am Multivitamin preparation (3 sources) Start: 12-11-2022 take 1 tablet by mouth once daily Multivitamin Active 1 TABLET PO DAILY December 11, 2022 12:00am Start: 11-08-2017 End: 08-06-2020 take 1 tablet by mouth once daily Multivitamin Discontinued 1 TABLET PO daily November 08, 2017 12:00am August 06, 2020 10:25am Completed/Discontinued Medications Medication Drug Class(es) Dates Sig (Normalized) Sig (Original) estradiol 0.5 mg oral tablet (2 sources) Estrogen Start: 10-13-2019 End: 08-06-2020 Estradiol Discontinued MG PO October 13, 2019 1:00am August 06, 2020 10:25am moxifloxacin (1 source) Quinolone Antimicrobial Start: 12-11-2022 End: 12-18-2022 Moxifloxacin Discontinued 1 DRP OPHTHALMIC THREE TIMES A DAY 3 7 December 11, 2022 12:00am December 18, 2022 12:05am Problems Active Problems Problem Classification Problem Date Documented Da te Episodic/Chronic Acquired foot deformities (1 source) Hallux valgus (acquired), right foot; Translations: [Hallux valgus (acquired), right foot] Onset: 02-25-2024 Chronic Disorders of lipid metabolism (1 source) Hyperlipidemia, unspecified; Translations: [Hyperlipidemia, unspecified] Onset: 01-18-2025 Chronic Essential hypertension (1 source) Essential (primary) hypertension; Translations: [Essential (primary) hypertension] Onset: 01-18-2025 Chronic Inflammation; infection of eye (except that caused by tuberculosis or sexually transmitteddisease) (2 sources) Acute infectious conjunctivitis; Translations: [Unspecified acute conjunctivitis, unspecified eye] 12-11-2022 Episodic Other aftercare (1 source) Encounter for therapeutic drug level monitoring; Translations: [Encounter for therapeutic drug level monitoring] Onset: 01-18-2025 Episodic Past or Other Problems Problem Classification Problem Date Documented Da te Episodic/Chronic Other screening for suspected conditions (not mental disorders or infectious disease) (1 source) Encounter for screening mammogram for malignant neoplasm of breast; Translations: [Encounter for screening mammogram for malignant neoplasm of breast] Onset: 02-10-2024 Episodic Results Test Name Value Interpretation Reference Range Facility Bedside Glucoseon 02-11-2024 FINGERSTICK GLU 92 mg/dL Normal 74-106 [facility] Comment on above: Result Comment: MADDIE ANDERSON OF PATIENT CARE PER NURSING PROTOCOL Performed By: #### L 501.080 #### [facility] [address] [place], [address] FINGERSTICK GLU 193 mg/dL High 74-106 [facility] Comment on above: Result Comment: MADDIE ANDERSON OF PATIENT CARE PER NURSING PROTOCOL Performed By: #### L 501.080 #### [facility] [address] [place], [place], [address] Foot min 3 Viewson 4 Foot min 3 Views [facility] Imaging Services [address] [place] [address] Foot min 3 Views MR#: [id number] Acct: [id number] Name: RADHA HALL ANN Rep #: [id number] : 1965 F 58 From: Wilson Lugo MD PCP: Dr. Shanika Nunes DO Status: [facility] Study: Foot min 3 Views Date of Exam: 02/11/24 Exam# [id number] Ordering Dr: Demetris Rivera DPM [id number] STUDY: X-RAY - RIGHT FOOT CLINICAL: Female, 58 years old. Midfoot arthrodesis. Intraoperative digital documentation views. TECHNIQUE: 9 intraoperative digital documentation view(s) of the foot. COMPARISON: Foot x-rays dated February 20, 2004 FINDINGS: Intraoperative digital documentation images show fusion at the PIP joint of the second digit. RAD/Foot min 3 Views IMPRESSION: Intraoperative digital documentation views. Electronically Signed: Wilson Lugo MD at 15:07 EDT , CC: BRENNEN Rivera; Dr. Shanika Nunes DO System Developer Associate Manager: Signed Normal [facility] MR/POSTOP.[facility]ami 02-11-2024 [facility] Medical Records Department [address] [place] [address] Anesthesia Postop Eval I 02/11/24 1525 MR#: [id number] Acct: [id number] Name: RADHA HALL ANN Rep #: [id number] : 1965 58 From: Dariela Villanueva PCP: Dr. Shanika Nunes, DO Status:REG SDC Y Race: C Location: [place] [address] Anesthesia: Postop Eval I Current Vital Signs Temperature: 97.3 F Pulse Rate: 68 Blood Pressure: 120/80 Respiratory Rate: 16 Pulse Ox: 93 Oxygen Delivery Method: Room Air Assessment Airway patent: Yes Spontaneous unlabored respirations: Yes Mental status: Awake nausea: No Vomiting: No Anesthesia Complication: No Fluid Hydration Crystalloid volume administer (ml): 1,500 Total IV fluid infused: 1,500 Progress Note Anesthesia document: Postop Eval 1 completed: Yes 02/11/24 1526 Date Dariela Smithigner Signature: Date CC: Signed Normal [facility] MR/[id number] 02-11-2024 [facility] Medical Records Department [address] [place] [address] Anesthesia Postop Eval II 02/11/24 1651 MR#: [id number] Acct: [id number] Name: RADHA HALL ANN Rep #: [id number] : 1965 58 From: Lamonte Dia MD PCP: Dr. Shanika Nunes, DO Status:REG SDC Y Race: C Location: [address] Anesthesia Postop Eval I Sum Postop Eval Completion status Anesthesia document: Postop Eval 1 completed: Yes Anesthesia Postop Eval I Summary Anesthesia Postop Eval I Summary: Anesthesia Postop Eval I: Assessment Summary Airway patent Yes 02/11/24 15:26 [facility] Spontaneous unlabored Yes 02/11/24 15:26 [facility] respirations Mental status Awake 02/11/24 15:26 [facility] nausea No 02/11/24 15:26 [facility] Vomiting No 02/11/24 15:26 [facility] Anesthesia Postop Eval I: Fluid Summary Crystalloid volume administer 1,500 02/11/24 15:26 [facility] (ml) Colloids volume administered ( ml) Blood Product volume administered (ml) Total IV fluid infused 1,500 02/11/24 15:26 [facility] Anesthesia Postop Eval I: Summary Notes Anesthesia Complication No 02/11/24 15:26 [facility] Anesthesia Complication Comment: Post-operative progress note Anesthesia: Postop Eval II Evaluation Mental status: Awake and Calm Pain Level: 1 nausea: No Vomiting: No Complications Anesthesia Complication: No 02/11/24 1652 Date Lamonte Dia MD Cosigner Signature: Date CC: Signed Normal [facility] Operative Reporton 4 Operative Report [facility] Medical Records Department [address] [place] [address] Operative Report 02/11/24 1206 MR#: [id number] Acct: [id number] Name: RADHA HALL Rep #: [id number] : 1965 58 From: Demetris Rivera DPM PCP: Dr. Shanika Nunes, DO Status:[facility] Location: [facility] [place] [place] Problems Associated Problem List Diagnoses (1) Hallux valgus (acquired), right foot: (2) Primary osteoarthritis, right ankle and foot: (3) Other deformities of toe(s) (acquired), right foot: (4) Contracture, right foot: (5) Pain in right foot: (6) Chronic pain of toe of right foot: Report of Operation Date of Procedure: 02/11/24 Pre-Operative Diagnosis: 1. Hallux valgus, right foot 2. Osteoarthritis, right foot and ankle 3. Other deformity of toes, second digit, right foot 4. Contracture, right foot 5. Pain, right foot 6. Chronic pain of toe, right foot Post-Operative Diagnosis: 1. Hallux valgus, right foot 2. Osteoarthritis, right foot and ankle 3. Other deformity of toes, second digit, right foot 4. Contracture, right foot 5. Pain, right foot 6. Chronic pain of toe, right foot Surgery/Procedure Performed:: 1. Arthrodesis of midtarsal joint, first tarsometatarsal joint, right foot 2. Capsulotomy first metatarsophalangeal joint, right foot 3. Cordova of calcaneal bone graft, right foot 4. Stress views, right foot 5. Second digit proximal interphalangeal joint arthrodesis, right foot Description of Surgical Findings:: 1. Good anatomic reduction of hallux valgus and abductor deformity, right foot 2. Good reduction and correction with apposition of the second digit hammertoe correction, right foot Surgeon: Demetris Rivera cable machine operator: Inocencia Cali Type of Anesthesia: Block,Regional, General and Local Anesthesiologist: Tripp Flores Special Medications: Per anesthesia Specimen's removed: None Drains: None Estimated Blood Loss (mL): 30 mL Fluids Replaced: Per anesthesia Description of Procedure: Indications For Operation: Ms. Hall is a 58-year-old female who was admitted to [facility] for elective bunion corrective and hammer toe surgery to the right foot. Patient is well-known to my practice and was seen in office for surgical consultation with all risk and benefits discussed with the patient in great detail. Patient originally presented with chronic pain with valgus deformity and hammer toe 2nd digit to her right foot. Patient has failed all conservative methods consisting of shoe gear modification, treatment with padding, strapping and other types of treatment consisting of oral anti-inflammatories without success. Patient has failed all conservative treatment at this time. We are recommending surgical intervention. The patient does understand all risk, benefits and complications for the surgical procedure. All questions have been answered to the patient with great detail. Due to right lower extremity deformity it has been deemed necessary at this time to take the patient to the operating room to perform the above procedure to decrease her constant pain. The nature of the problem, anticipated procedures, postop recovery/convalences and risk/complications include but not limited to infection, wound healing complications, digital amputation, hypertrophic scarring, numbness, tingling, chronic pain, CRPS, over and under correction, recurrence of deformity, DVT and or PE and the need for further surgery have been discussed in great detail with the patient. All questions have been answered to the patient's satisfaction. There are no guarantees given as to the outcome of the procedure. Description of Procedure: Under mild sedation, the patient was brought into the operating room and placed on the operating table in supine position. Once the patient was under general anesthesia with laryngeal mask airway, the right lower extremity was blocked using approximately 10 cc 0.5% Marcaine plain to the saphenous nerve. Patient has received popliteal block per anesthesia and holding prior to the procedure. Please see anesthesia notes for further detail. Next, a well-padded thigh tourniquet was applied to the right lower extremity. Next, the right lower extremity was prepped and draped in normal aseptic manner. Next, a timeout was then undertaken verifying the correct patient, extremity, visibility of preoperative markings, availability of the equipment. Next, attention was directed to the right lower extremity. Using a 6 inch Esmarch, right lower extremity was exsanguinated and elevated to 60 degrees for 1 minute. Next, the tourniquet was inflated to 275 mmHg. Procedure #1, Cordova of calcaneal bone graft, right foot (CPT code: 17036) Next, attention was directed to the lateral aspect of the right calcaneus. Using a #15 blade, a full-thickness incision, approximately 1 cm, was made down to bone without incident. Continued blunt (more content not included)... [facility] LAB TEST Normal [facility] Comment on above: Order Comment: URINE NICOTINE #[id number] URINE NICOTINE #[id number] Result Comment: TEST RESULTS LIMITS Nicotine Metabolite, Urine Cotinine Negative ng/mL [id number] TESTING PERFORMED AT [facility]. ORIGINAL REPORT ON FILE IN LAB CONTAINS ADDITIONAL TEST SITE INFORMATION. Performed By: #### L 505.6240, L801.1541, M100.651 #### [facility] [address] [place], [address] MRSA/SAID NASAL SCREENon MRSA+SAID SCRN Reason for Exam: PRE OP MRSA MRSA Negative S. AUREUS S. aureus PositiveA Normal [facility] Comment on above: Performed By: #### L 505.6240, L801.1541, M100.651 #### [facility] [address] [place], [address] Magnesiumon 02-05-2024 Magnesium [Mass/Vol] 2.4 mg/dL Normal 1.6-2.6 [facility] Comment on above: Performed By: #### L 501.5200 ####[facility] [address] [place], [address] Nicotine Urine Drug Screenon 02-05-2024 COT DRG SCREEN Normal <200 ng/mL [facility] Comment on above: Result Comment: SENT TO [facility] Cotinine is the first-stage metabolite of Nicotine. Performed By: #### L 505.6240, L801.1541, M100.651 #### [facility] [address] [place], [address] DRUG CONFIRM Normal [facility] Comment on above: Result Comment: SENT TO [facility] CONFIRMATORY TESTING FOR ALL POSITIVE URINE DRUG SCREEN RESULTS WILL ONLY BE SENT OUT UPON PHYSICIAN ORDER. The results of Urine Drug Screen methods provide only preliminary analytical test results. A more specific alternate chemical method must be used in order to obtain a confirmed analytical result. Gas chromatography/mass spectrometery (GC/MS) is the preferred confirmatory method. Clinical consideration and professional judgement should be applied to any drug of abuse test result, particularly when preliminary positive results are used. Performed By: #### L 505.6240, L801.1541, M100.651 #### [facility] [address] [place], [address] COT Internal QC Normal [facility] Comment on above: Result Comment: SENT TO [facility] Performed By: #### L 505.6240, L801.1541, M100.651 #### [facility] [address] [place], [address] SCRN MAMM (CAD)W/IRAM BILATo n 02-02-2024 SCRN MAMM (CAD)W/IRAM BILAT [facility] Imaging Services [address] [place], [place] [address] SCRN MAMM (CAD)W/IRAM BILAT MR#: [id number] Acct: [id number] Name: RADHA HALL ANN Rep #: [id number] : 1965 F 58 From: Antonio house MD PCP: Dr. Shanika Nunes DO Status: REG [facility] Study: SCRN MAMM (CAD)W/IRAM BILAT Date of Exam: 01/14 05/09 Exam# [id number] Ordering [place]: [place] [id number] MAMMOGRAPHY - BILATERAL SCREENING REASON FOR EXAM: Female, 58 years old. Routine annual screening examination. PERTINENT HISTORY: Non-contributory. History of prior breast aspirations. TECHNIQUE: Digital bilateral breast iram (3D mammographic acquisition) in the CC and MLO projections. 2-D mediolateral oblique (MLO) and craniocaudad (CC) views of both breasts were obtained. CAD: Full Field Digital Mammography with Computer Added Detection was performed. COMPARISON: Comparison is made with prior study of January 12, 2023 and September 08, 2021. FINDINGS: Breast Composition: The breasts are extremely dense, which lowers the sensitivity of mammography. There are no dominant masses or suspicious calcifications. No other significant abnormalities are identified. There has been no significant change since the prior study. BI/SCRN MAMM (CAD)W/IRAM BILAT IMPRESSION: Stable bilateral screening mammogram. Yearly follow-up mammogram recommended. (A) ASSESSMENT CATEGORY: BIRADS Category 1: Negative. A letter regarding these results will be sent to the patient by the facility within 30 days. Approximately 10% of breast cancers are not detected by mammography. A normal mammogram should not delay biopsy of a clinically suspicious abnormality. [id number] Electronically Signed: Antonio Matthews MD at 8:25 EDT , CC: Dr. Shanika Nunes, DO System Developer Associate Manager: Signed Normal [facility] Absolute lymphocyte countOrd ered By: Dr. Nunes on 12-31-2022 Lymphocytes Auto (Unsp spec) [#/Vol] 1.89 10*3/uL 0.83-4.51 [facility] Basophil percentageOrdered B y: Dr. Nunes on 12-31-2022 Basophils/100 WBC (Bld) 0.5 % 0-1 [facility] Bilirubin [Mass/Vol] 0.70 mg/dL 0.20-1.00 [facility] Comment on above: For patients on eltr ombopag therapy, use of [place] TBIL is not recommended. Chloride [Moles/Vol] 108 mmol/L 98-107 [facility] Cholesterol [Mass/Vol] 202 mg/dL <200 [facility] Comment on above: <200 mg/dL Desirable 200-240 mg/dL Borderline >240 mg/dL High Risk Eosinophils/100 WBC (Bld) 1.6 % 0-5 [facility] Glucose [Mass/Vol] 95 mg/dL 74-106 [facility] Neutrophils (Bld) [#/Vol] 2.0 10*3/uL 2.0-7.7 [facility] Neutrophils/100 WBC (Bld) 45.2 % 47-70 [facility] Potassium [Moles/Vol] 4.0 mmol/L 3.5-5.1 [facility] Protein [Mass/Vol] 8.0 g/dL 6.4-8.2 [facility] Sodium [Moles/Vol] 141 mmol/L 136-145 [facility] Triglyceride [Mass/Vol] 83 mg/dL <199 [facility] Comment on above: The drugs N-Acetylcy steine and Metamizole may falsely depress this assay.Serum Triglycerides Reference Interval Normal <150 mg/dL Borderline high 150 - 199 mg/dL High 200 - 499 mg/dL Very High > or = 500 mg/dL WBC (Bld) [#/Vol] 4.4 10*3/uL 4.4-11.0 [facility] Blood erythrocytes count (nu mber/volume)Ordered By: Dr. Nunes on 12-31-2022 RBC (Bld) [#/Vol] 4.67 10*6/uL 4.2-5.4 [facility] Blood hemoglobin measurement (mass/volume)Ordered By: Dr. Nunes on 12-31-2022 Hemoglobin (Bld) [Mass/Vol] 13.6 g/dL 12.0-15.0 [facility] Blood lymphocytes/100 leukoc ytesOrdered By: Dr. Nunes on 12-31-2022 Lymphocytes/100 WBC (Bld) 42.8 % 19-41 [facility] Blood monocytes/100 leukocyt esOrdered By: Dr. Nunes on 12-31-2022 Monocytes/100 WBC (Bld) 9.7 % 0-10 [facility] Blood platelet mean volumeOr dered By: Dr. Nunes on 12-31-2022 Platelet mean volume (Bld) [Entitic vol] 11.0 fL 6.2-12.0 [facility] Determination of erythrocyte mean corpuscular volume (MCV)Ordered By: Dr. Nunes on 12-31-2022 MCV (RBC) [Entitic vol] 92.1 fL 81-99 [facility] Hematocrit Auto (Bld) [Volum e fraction]Ordered By: Dr. Nunes on 12-31-2022 Hematocrit (Bld) [Volume fraction] 43.0 % 37-47 [facility] - Chemistry and C hemistry - challengeOrdered By: Dr. Nunes on 12-31-2022 ALP [Catalytic activity/Vol] 82 U/L 45-117 [facility] ALT [Catalytic activity/Vol] 39 U/L 13-56 [facility] CO2 [Moles/Vol] 28.0 mmol/L 21.0-32.0 [facility] Free T4 [Mass/Vol] 0.95 ng/dL 0.76-1.46 [facility] Globulin (S) [Mass/Vol] 3.7 g/dL 2.2-4.2 [facility] Urea nitrogen/Creatinine [Mass ratio] 26.4 mg/mg 10-20 [facility] - Hematology and Cell countsOrdered By: Dr. Nunes on 12-31-2022 Erythrocyte distribution width (RBC) [Entitic vol] 47.3 fL 35.1-43.9 [facility] Erythrocyte distribution width (RBC) [Ratio] 13.9 % 11.6-14.6 [facility] Immature granulocytes/100 WBC (Bld) 0.200 % 0.0-0.9 [facility] Comment on above: IG% - Immature Granu locytes (promyelocytes, myelocytes and metamyelocytes) > 1% indicates that a LEFT SHIFT is Present. MCH (RBC) [Entitic mass] 29.1 pg 27.0-32.0 [facility] Nucleated RBC/100 WBC (Bld) [Ratio] 0 % 0-5 [facility] MCHC Auto (RBC) [Mass/Vol]Or dered By: Dr. Nunes on 12-31-2022 MCHC (RBC) [Mass/Vol] 31.6 g/dL 32-36 [facility] No Panel InformationOrdered By: Dr. Nunes on 12-31-2022 Estimated GFR (MDRD) Amer 101 mL/min >60 [facility] Comment on above: GFR Calc Estimated GFR (MDRD) Non-Af Amer 83 mL/min >60 [facility] Comment on above: Non- GFR Calc Free Triiodothyronine (T3) pg/dL 2.7 pg/mL 2.18-3.98 [facility] Thyroid Stimulating Hormone (TSH) 1.04 uIU/mL 0.358-3.74 [facility] Urine Microalbumin/Creatinin e Ratio 25.2 mg/g CRE <30 [facility] Platelets bldOrdered By: Dr. Nunes on 12-31-2022 Platelets (Bld) [#/Vol] 240 10*3/uL 150-450 [facility] Serum or plasma albumin janes urement (mass/volume)Ordered By: Dr. Nunes on 12-31-2022 Albumin [Mass/Vol] 4.3 g/dL 3.2-5.0 [facility] Serum or plasma albumin/glob ulin mass ratioOrdered By: Dr. Nunes on 12-31-2022 Albumin/Globulin [Mass ratio] 1.2 {ratio} 0.9-2.4 [facility] Serum or plasma calcium janes urement (mass/volume)Ordered By: Dr. Nunes on 12-31-2022 Calcium [Mass/Vol] 9.1 mg/dL 8.5-10.1 [facility] Serum or plasma cholesterol in HDL measurement (mass/volume)Ordered By: Dr. Nunes on 12-31-2022 Cholesterol in HDL [Mass/Vol] 64 mg/dL >40 [facility] Comment on above: The drugs N-Acetylcy steine and Metamizole may falsely depress this assay. Reference Range HDL <40 mg/dL Low HDL Cholesterol HDL >or= 60 mg/dL High HDL Cholesterol Serum or plasma cholesterol in VLDL measurement (mass/volume)Ordered By: Dr. Nunes on 12-31-2022 Cholesterol in VLDL [Mass/Vol] 17 mg/dL 5-40 [facility] Serum or plasma creatinine m easurement (mass/volume)Ordered By: Dr. Nunes on 12-31-2022 Creatinine [Mass/Vol] 0.76 mg/dL 0.55-1.02 [facility] Comment on above: The validity of the calculated GFR & GFRAA in patients over 70 years has not been determined. Clinical correlation is essential. Serum or plasma low density lipoprotein (LDL) cholesterol measurement (mass/volume)Ordered By: Dr. Nunes on 12-31-2022 Cholesterol in LDL [Mass/Vol] 121 mg/dL 0-130 [facility] Serum or plasma urea nitroge n measurement (mass/volume)Ordered By: Dr. Nunes on 12-31-2022 Urea nitrogen [Mass/Vol] 20 mg/dL 7-18 [facility] Thin prep Papanicolaou smear with manual screeningOrdered By: Dr. Nunes on 12-31-2022 Thin prep Papanicolaou smear with manual screening 22 U/L 15-37 [facility] Thin prep Papanicolaou smear with manual screening 5 5-15 [facility] Thin prep Papanicolaou smear with manual screening 42.6 mg/L NO RANGE EST. [facility] Urine creatinine measurement (mass/volume)Ordered By: Dr. Nunes on 12-31-2022 Creatinine (U) [Mass/Vol] 169.00 mg/dL NO RANGE EST. [facility] Vital Signs Date Time Vital Sign Value Performing Clinician Faci lity 12-11-2022 09:36-0400 Diastolic blood pressure 84 mm[Hg] Dr. Shanika Nunes Work Phone: [facility] 12-11-2022 09:36-0400 Systolic blood pressure 136 mm[Hg] Dr. Shanika Nunes Work Phone: [facility] 12-11-2022 09:30-0400 Body height 160.[address] Shanika Nunes Work Phone: [facility] 12-11-2022 09:30-0400 Body mass index (BMI) [Ratio] 26.6 kg/m2 Dr. Shanika Nunes Work Phone: [facility] 12-11-2022 09:30-0400 Body temperature 98.4 [degF] Dr. Shanika Nunes Work Phone: [facility] 12-11-2022 09:30-0400 Body weight 68.[address] Shanika Nunes Work Phone: [facility] 12-11-2022 09:30-0400 Heart rate 116 /min Dr. Shanika Nunes Work Phone: [facility] 12-11-2022 09:30-0400 Respiratory rate 14 /min Dr. Shanika Nunes Work Phone: [facility] 12-11-2022 09:30-0400 SaO2% (BldA) [Mass fraction] 97 % Dr. Shanika Nunes Work Phone: [facility] Encounters Encounter Date Encounter Type Care Provider Facility Start: 01-18-2025 ambulatory Shanika Nunes Facility:[facility] Start: 02-11-2024 End: 02-11-2024 ambulatory Demetris Rivera Facility:[facility] Start: 02-02-2024 End: 02-02-2024 ambulatory Shanika Nunes Facility:[facility] Start: 01-12-2023 End: 01-12-[address] Shanika Nunes Work Phone: [facility] Work Phone: Start: 01-12-2023 End: 01-12-[address] Shanika Nunes Work Phone: [facility] Start: 12-31-2022 End: 12-31-[address] Shanika Nunes [facility] Phone[facility] Start: 12-11-2022 End: 12-11-[address] Shanika Nunes Work Phone: [facility] Procedures Date Procedure Procedure Detail Performing Clinician Start: 01-12-2023 Screening mammography D alyssa Nunes Work Phone: Payers Date Payer Category Payer Self-pay [id number] 2024 Unknown [id number] 2024 Unknown [id number] 2013 Private Health Insurance [employer] [id number] Unknown [id number] Unknown [id number] Social History Date Type Detail Facility Tobacco smoking stat [facility] Unknown if ever smoked [facility] Work Phone: Start: 1965 Sex Assigned At Female [facility] Start: 12-11-2022 Tobacco smoking stat [facility] Unknown if ever smoked [facility] Evaluation note Note Date & Type Note Facility Evaluation note No assessment information availa ble [facility] Work Phone: Evaluation note Note Date & Type Note Facility Evaluation note Diagnosis Onset Date Acute bacterial conjunctivitis acute [facility] Work Phone: Chief Complaint and Reason for Visit Chief Complaint RT EYE/POSSILE PINK EYE SCREENING Reason for Visit Acute bacterial conj unctivitis Summary Purpose Family History No Family History Records Found Advance Directives No Advanced Directives Records Found Additional Source Comments Goals (unrecognized section and content) Goals may be documented in a n alternate sectionGoals may be documented in an alternate section Care Teams (unrecognized sec tion and content) Team Status: Active Member Role Status Dates Dr. Shanika Nunes DO Family Provider Active Dr. Shanika Nunes DO Primary Care Provider Active Team Status: Inactive Member Role Status Dates Dr. Shanika Nunes DO Primary Care Provider, Referring P charity Active Roel ALTMAN PA Attending Provider Active Team Status: Inactive Member Role Status Dates Dr. Shanika Nunes DO Primary Care Provide r, Attending Provider, Referring Provider Active INFORMATION SOURCE (unrecogn ized section and content) DATE CREATED AUTHOR 01/19/2025 [facility] FOR RECORDS PERTAINING TO PATIENTS WHO ARE OR HAVE BEEN ENROLLED IN A CHEMICAL DEPENDENCY/SUBSTANCEABUSE PROGRAM, SOME INFORMATION MAY BE OMITTED. This clinical summary was aggregated from multiple sources. Caution should be exercised in using it in the provision of clinical care. This summary normalizes information from multiple sources, and as a consequence, information in this document may materially change the coding, format and clinical context of patient data. In addition, data may be omitted in some cases. CLINICAL DECISIONS SHOULD BE BASED ON THE PRIMARY CLINICAL RECORDS. [employer] [facility]. provides no warranty or guarantee of the accuracy or completeness of information in this document.
== END | disposition home or self-care (01) ==
LOC: MTLAB 08:59
PROVIDERS: PCP Family Medicine; Referring Provider Family Medicine; Visit Provider Family Medicine
DX: I10 Essential (primary) hypertension (principal); E78.5 Hyperlipidemia, unspecified; Z51.81 Encounter for therapeutic drug level monitoring
CPT/HCPCS: 36415; 80053; 80061; 85025

== ENCOUNTER → 2025-02-07 | Outpatient (CLI) | payer BC, OTHER, SELFPAY ==
--- NOTE | 2025-02-07 07:06 | BI_ITS ---
EXAM: SCRN MAMM (CAD)W/IRAM BILAT DATE: 02/07/2025 CLINICAL HISTORY: F, Age 59 y/o , SCREENING No family history. History of prior breast aspirations. TECHNIQUE: SCRN MAMM (CAD)W/IRAM BILAT COMPARISON: Prior exam(s) dated February 02, 2024.. FINDINGS: TISSUE DENSITY: The breast tissue is extremely dense which lowers the sensitivity of mammography. Bilateral Breast Mammographic Findings: No significant masses, calcifications or other abnormalities are identified. Stable bilateral fat containing axillary lymph nodes. No suspicious masses, areas of developing architectural distortion, or suspicious calcifications. There has been no significant interval change. BI/SCRN MAMM (CAD)W/IRAM BILAT IMPRESSION: Stable examination OVERALL FINAL ASSESSMENT BI-RADS 2: BENIGN RECOMMEND ANNUAL MAMMOGRAPHIC SCREENING. RECOMMENDATION: Routine annual follow-up in 1 Year A letter with findings and recommendations will be mailed to the patient. Reading Location: [facility]
--- OUTSIDE RECORDS SUMMARY | 2025-02-07 07:10 | XMS RPT_ITS | CCD ---
Author Organization [facility] Inform ion Partnership [facility] Care Team Providers Care Dryland Farmer Name Role Phone Dr. Shanika Nunes Primary Care Provider Dr. Shanika Nunes Referring Provider [phone] ANUPAMA Fletcher Attending Provider Dr. Shanika Nunes DO Primary Care Provider [phone] Dr. Shanika Nunes DO Attending Provider Dr. Shanika Nunes DO Referring Provider Demetris Rivera Referring Unavailable Malys, Shanika Primary Care Unavailable Demetris Rivera Attending Unavailable Nachoys, Shanika Primary Care Unavailable Malys, Shanika Attending Unavailable Malys, Shanika Referring Unavailable Malys, Shanika Primary Care Unavailable Malys, Shanika Attending Unavailable Malys, Shanika Referring Unavailable Allergies Allergy Classification Reported Allergen(s) Allergy Type Date of Onset Reaction(s) Facility (3 sources) Sulfonamides (Antibiotic) Allergy to substance 1 unknown [facility] (1 source) Sulfonamides (Antibiotic) Drug allergy (disorder) 4 [facility] Repository Medications Current Medications Medication Drug Class(es) Dates Sig (Normalized) Sig (Original) acetaminophen 325 mg / oxyCODONE hydrochloride 5 mg oral tablet (1 source) Opioid Agonist Start: 02-11-2024 take 1 tablet by mouth every six hours Oxycodone-Acetami nophen (Endocet) 5-325 mg tablet Active 1 {tbl} PO EVERY 6 HOURS 28 7 February 11, 2024 ascorbic acid 1000 mg oral tablet (2 sources) Vitamin C Start: 02-11-2024 take 1 g by mouth once daily Ascorbic Acid (Vitamin C) (Vitamin C) 1,000 mg tablet Active 1 g PO DAILY 90 90 February 11, 2024 12:00am Start: 02-04-2024 take 1 tablet by mouth once da meliza Ascorbic Acid (Vitamin C) (C-500) 500 mg tablet extended release Active 500 mg PO DAILY February 04, 2024 12:00am aspirin 81 mg delayed release oral tablet (1 source) Platelet Aggregation Inhibitor, Nonsteroidal Anti-inflammatory Drug Start: 02-11-2024 take 1 tablet by mouth once daily Aspirin 81 mg tablet,delayed release (DR/EC) Active 81 mg PO DAILY 30 February 11, 2024 12:00am biotin 1 mg oral capsule (3 sources) Start: 08-06-2020 take 2 capsules by mouth once daily Biotin 1 mg capsule Active 2 mg PO DAILY August 06, 2020 1:00am Start: 08-06-2020 take 2 mg by mouth once daily Biotin Active 2 MG PO DAILY August 06, 2020 1:00am calcium carbonate 1250 mg / cholecalciferol 600 unt oral tablet (1 source) Vitamin D Start: 02-11-2024 Calcium Carbonate-Vitamin D3 (Os-Mickey 500 + D3) 500 mg-15 mcg (600 unit) tablet Active 1 {tbl} PO DAILY February 11, 2024 12:00am cholecalciferol 0.025 mg oral capsule (1 source) Vitamin D Start: 02-04-2024 take 1 capsule by mouth once daily Cholecalciferol (Vitamin D3) (Vitamin D3) 25 mcg (1,000 unit) capsule Active 25 ug PO DAILY February 04, 2024 12:00am cyclobenzaprine hydrochloride 10 mg oral tablet (1 source) Muscle Relaxant Start: 02-11-2024 take 1 tablet by mouth three times daily Cyclobenzaprine 10 mg tablet Active 10 mg PO THREE TIMES A DAY 05 03February 11, 2024 12:00am docusate sodium 100 mg oral capsule (1 source) Start: 02-11-2024 take 1 capsule by mouth once daily Docusate Sodium (Colace) 100 mg capsule Active 100 mg PO DAILY 10 February 11, 2024 12:00am hydroCHLOROthiazide 12.5 mg / losartan potassium 50 mg oral tablet (1 source) Thiazide Diuretic, Angiotensin 2 Receptor Citlalli Start: 02-04-2024 Losartan-Hydrochlorot hiazide 50-12.5 mg tablet Active 1 {tbl} PO DAILY February 04, 2024 12:00am Magnesium (1 source) Start: 02-04-2024 take 1 tablet by mouth once daily Magnesium 250 mg tablet Active 250 mg PO DAILY February 04, 2024 12:00am Multivitamin preparation (3 sources) Start: 12-11-2022 take 1 tablet by mouth once daily Multivitamin Active 1 TABLET PO DAILY December 11, 2022 12:00am Start: 11-08-2017 End: 08-06-2020 take 1 tablet by mouth once daily Multivitamin Discontinued 1 TABLET PO daily November 08, 2017 12:00am August 06, 2020 10:25am Multivitamin tablet (2 sources) Start: 12-11-2022 Multivitamin t ablet Active 1 {tbl} PO DAILY December 11, 2022 12:00am Start: 11-08-2017 End: 08-06-2020 Multivitamin tablet Disconti nued 1 {tbl} PO daily November 08, 2017 12:00am August 06, 2020 10:25am ubidecarenone 100 mg oral capsule (1 source) Start: 02-04-2024 Coenzyme Q10 ( Coq-10) 100 mg capsule Active 100 mg PO DAILY February 04, 2024 12:00am zinc gluconate 50 mg oral tablet (1 source) Start: 02-04-2024 take 1 tablet by mouth once daily Zinc Gluconate 50 mg tablet Active 50 mg PO DAILY February 04, 2024 12:00am Completed/Discontinued Medications Medication Drug Class(es) Dates Sig (Normalized) Sig (Original) estradiol 0.5 mg oral tablet (3 sources) Estrogen Start: 10-13-2019 End: 08-06-2020 Estradiol 0.5 mg tablet Discontinued mg PO October 13, 2019 1:00am August 06, 2020 10:25am Start: 10-13-2019 End: 08-06-2020 Estradiol Discontinued MG PO October 13, 2019 1:00am August 06, 2020 10:25am Alexa (3 sources) Start: 08-06-2020 End: 02-04-2024 Alexa Discontinued 1 {tbl} PO Q5D August 06, 2020 1:00am February 04, 2024 1:07pm Start: 08-06-2020 Alexa Active 1 TABLET PO Q5D August 06, 2020 1:00am moxifloxacin (1 source) Quinolone Antimicrobial Start: 12-11-2022 End: 12-18-2022 Moxifloxacin Discontinued 1 DRP OPHTHALMIC THREE TIMES A DAY 3 December 11, 2022 12:00am December 18, 2022 12:05am Moxifloxacin 0.5 % drops (1 source) Start: 12-11-2022 End: 12-18-2022 Moxifloxacin 0.5 % drops Discontinued 1 NMA OPHTHALMIC THREE TIMES A DAY 3 December 11, 2022 12:00am December 17, 2022 12:00am December 18, 2022 12:05am Problems Problem Classification Problem Date Documented Date Episodic/Chronic Acquired foot deformities (2 sources) Acquired hallux valgus; Translations: [Hallux valgus (acquired), right foot] Onset: 02-25-2024 02-12-2024 Chronic Acquired foot deformities (1 source) Acquired deformity of toe; Translations: [Other deformities of toe(s) (acquired), right foot] 02-12-2024 Episodic Essential hypertension (1 source) Essential (primary) hypertension; Translations: [Essential (primary) hypertension] Onset: 02-05-2025 Chronic Inflammation; infection of eye (except that caused by tuberculosis or sexually transmitteddisease) (3 sources) Acute infectious conjunctivitis; Translations: [Unspecified acute conjunctivitis, unspecified eye] 12-11-2022 Episodic Osteoarthritis (1 source) 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; Translations: [Primary osteoarthritis, right ankle and foot] 02-12-2024 Chronic Other acquired deformities (1 source) Contracture of joint of foot; Translations: [Contracture, right foot] 02-12-2024 Chronic Other connective tissue disease (1 source) Chronic pain of right foot; Translations: [Pain in right toe(s)] 02-12-2024 Episodic Other connective tissue disease (1 source) Foot pain; Translations: [Pain in right foot] 02-12-2024 Episodic Other nervous system disorders (1 source) Acute postoperative pain; Translations: [Other acute postprocedural pain] 02-11-2024 Episodic Other screening for suspected conditions (not mental disorders or infectious disease) (1 source) Encounter for screening mammogram for malignant neoplasm of breast; Translations: [Encounter for screening mammogram for malignant neoplasm of breast] Onset: 02-05-2025 Episodic Results Test Name Value Interpretation Reference Range Facility Absolute lymphocyte countOrd ered By: Shanika Nunes on 01-30-2025 Lymphocytes Auto (Unsp spec) [#/Vol] 1.63 10*3/uL 0.83-4.51 [facility] Absolute neutrophil countOrd ered By: Shanika Nunes on 01-30-2025 Neutrophils (Bld) [#/Vol] 2.5 10*3/uL 2.0-7.7 [facility] Anion gap in Serum or Plasma Ordered By: Shanika Nunes on 01-30-2025 Anion gap [Moles/Vol] 11 mmol/L 5-15 [facility] Automated lymphocyte count a s percentage of total leukocytesOrdered By: Shanika Nunes on 01-30-2025 Lymphocytes/100 WBC Auto (Unsp spec) 35.3 % 19- [facility] BUN/creatinine ratioOrdered By: Shanika Nunes on 01-30-2025 Urea nitrogen/Creatinine [Mass ratio] 23.6 mg/mg High 10-20 [facility] Basophil percentageOrdered B y: Shanika Nunes on 01-30-2025 Basophils/100 WBC (Bld) 0.4 % 0-1 [facility] Bilirubin, totalOrdered By: Shanika Nunes on 01-30-2025 Bilirubin [Mass/Vol] 0.38 mg/dL 0.00-1.30 [facility] CBC W/Diff, Automatedon 01-14 Absolute Lymph 1.63 X10 3/uL Normal 0.83-4.51 [facility] Comment on above: Performed By: #### L 100.0100, L500.4100, L500.4050 #### [facility] [address] [place], [address] Absolute Neut 2.5 X10 3/uL Normal 2.0-7.7 [facility] Comment on above: Performed By: #### L 100.0100, L500.4100, [id number] #### [facility] [address] [place], [address] Basophils/100 WBC (Bld) 0.4 % Normal 0-1 [facility] Comment on above: Performed By: #### L 100.0100, L500.4100, [id number] #### [facility] [address] [place], [address] Eosinophils/100 WBC (Bld) 1.5 % Normal 0-5 [facility] Comment on above: Performed By: #### L 100.0100, L500.4100, [id number] #### [facility] [address] [place], [address] Erythrocyte distribution width (RBC) [Ratio] 13.7 % Normal 11.6-14.6 [facility] Comment on above: Performed By: #### L 100.0100, L500.4100, [id number] #### [facility] [address] [place], [address] Hematocrit (Bld) [Volume fraction] 39.9 % Normal 37-47 [facility] Comment on above: Performed By: #### L 100.0100, L500.4100, [id number] #### [facility] [address] [place], [address] Hemoglobin (Bld) [Mass/Vol] 13.1 g/dL Normal 12.0-15.0 [facility] Comment on above: Performed By: #### L 100.0100, L500.4100, [id number] #### [facility] [address] [place], [address] IG% 0.200 Normal 0.0-0.9 [facility] Comment on above: Result Comment: IG% - Immature Granulocytes (promyelocytes, myelocytes and metamyelocytes) > 1% indicates that a LEFT SHIFT is Present. Performed By: #### L 100.0100, L500.4100, [id number] #### [facility] [address] [place], [address] Lymphocytes/100 WBC (Bld) 35.3 % Normal 19-41 [facility] Comment on above: Performed By: #### L 100.0100, L500.4100, [id number] #### [facility] [address] [place], [address] MCH (RBC) [Entitic mass] 29.3 pg Normal 27.0-32.0 [facility] Comment on above: Performed By: #### L 100.0100, L500.4100, [id number] #### [facility] [address] [place], [address] MCHC (RBC) [Mass/Vol] 32.8 g/dL Normal 32-36 [facility] Comment on above: Performed By: #### L 100.0100, L500.4100, [id number] #### [facility] [address] [place], [address] MCV (RBC) [Entitic vol] 89.3 fL Normal 81-99 [facility] Comment on above: Performed By: #### L 100.0100, L500.4100, [id number] #### [facility] [address] [place], [address] Monocytes/100 WBC (Bld) 9.5 % Normal 0-10 [facility] Comment on above: Performed By: #### L 100.0100, L500.4100, [id number] #### [facility] [address] [place], [address] Neutrophils/100 WBC (Bld) 53.1 % Normal 47-70 [facility] Comment on above: Performed By: #### L 100.0100, L500.4100, [id number] #### [facility] [address] [place], [address] Nucleated RBC (Bld) [#/Vol] 0 10*3/uL Normal 0-5 [facility] Comment on above: Performed By: #### L 100.0100, L500.4100, [id number] #### [facility] [address] [place], [address] Platelet mean volume (Bld) [Entitic vol] 10.4 fL Normal 6.2-12.0 [facility] Comment on above: Performed By: #### L 100.0100, L500.4100, [id number] #### [facility] [address] [place], [address] Platelets (Bld) [#/Vol] 226 10*3/uL Normal 150-450 [facility] Comment on above: Performed By: #### L 100.0100, L500.4100, [id number] #### [facility] [address] [place], [address] RBC (Bld) [#/Vol] 4.47 10*6/uL Normal 4.2-5.4 [facility] Comment on above: Performed By: #### L 100.0100, L500.4100, [id number] #### [facility] [address] [place], [address] RDW SD 44.9 fl High 35.1-43.9 [facility] Comment on above: Performed By: #### L 100.0100, L500.4100, [id number] #### [facility] [address] [place], [address] WBC (Bld) [#/Vol] 4.6 10*3/uL Normal 4.4-11.0 [facility] Comment on above: Performed By: #### L 100.0100, L500.4100, [id number] #### [facility] [address] [place], [address] Calculated very low density lipoprotein (VLDL) cholesterol measurementOrdered By: Shanikamiya Nunes on 01-30-2025 Calculated very low density lipoprotein (VLDL) cholesterol measurement 26 mg/dL 5-40 [facility] Carbon dioxide, total [Moles /volume] in Central venous bloodOrdered By: Shanikamiya Nunes on 01-30-2025 CO2 [Moles/Vol] 24.8 mmol/L 21.0-32.0 [facility] Chloride assayOrdered By: Gisela Nunes on 01-30-2025 Chloride [Moles/Vol] 105 mmol/L 98-108 [facility] Comprehensive Metabolic Prof ilon 01-30-2025 Albumin [Mass/Vol] 4.6 g/dL Normal 3.4-4.8 [facility] Comment on above: Performed By: #### L 100.0100, L500.4100, [id number] #### [facility] [address] [place], [address] Albumin/Globulin [Mass ratio] 1.7 {ratio} Normal 0.9-2.4 [facility] Comment on above: Performed By: #### L 100.0100, L500.4100, [id number] #### [facility] [address] [place], [address] ALK PHOS 79 U/L Normal 35-104 [facility] Comment on above: Performed By: #### L 100.0100, L500.4100, [id number] #### [facility] [address] [place], [address] ALT [Catalytic activity/Vol] 45 U/L High <=34 [facility] Comment on above: Performed By: #### L 100.0100, L500.4100, [id number] #### [facility] [address] [place], [address] AST [Catalytic activity/Vol] 30 U/L Normal <=31 [facility] Comment on above: Performed By: #### L 100.0100, L500.4100, [id number] #### [facility] [address] [place], [address] Bilirubin [Mass/Vol] 0.38 mg/dL Normal 0.00-1.30 [facility] Comment on above: Performed By: #### L 100.0100, L500.4100, [id number] #### [facility] [address] [place], [address] BUN/CRE 23.6 RATIO High 10-20 [facility] Comment on above: Performed By: #### L 100.0100, L500.4100, [id number] #### [facility] [address] [place], [address] Calcium [Mass/Vol] 9.2 mg/dL Normal 7.6-11.0 [facility] Comment on above: Performed By: #### L 100.0100, L500.4100, [id number] #### [facility] [address] [place], [address] Chloride [Moles/Vol] 105 mmol/L Normal 98-108 [facility] Comment on above: Performed By: #### L 100.0100, L500.4100, [id number] #### [facility] [address] [place], [address] CO2 [Moles/Vol] 24.8 mmol/L Normal 21.0-32.0 [facility] Comment on above: Performed By: #### L 100.0100, L500.4100, [id number] #### [facility] [address] [place], [address] Creatinine [Mass/Vol] 0.78 mg/dL Normal 0.70-1.20 [facility] Comment on above: Performed By: #### L 100.0100, L500.4100, [id number] #### [facility] [address] [place], [address] GAP 11 Normal 5-15 [facility] Comment on above: Performed By: #### L 100.0100, L500.4100, [id number] #### [facility] [address] [place], [address] GFR/1.73 sq M.predicted among non-blacks MDRD (S/P/Bld) [Vol rate/Area] 87 mL/min/{1.73_m2} Normal >60 [facility] Comment on above: Result Comment: mL/m in/1.73m2 CKD-EPI Creatinine Equation (2020) Performed By: #### L 100.0100, L500.4100, [id number] #### [facility] [address] [place], [address] Globulin (S) [Mass/Vol] 2.7 g/dL Normal 2.2-4.2 [facility] Comment on above: Performed By: #### L 100.0100, L500.4100, [id number] #### [facility] [address] [place], [address] Glucose [Mass/Vol] 94 mg/dL Normal 70-99 [facility] Comment on above: Performed By: #### L 100.0100, L500.4100, [id number] #### [facility] [address] [place], [address] Potassium [Moles/Vol] 4.1 mmol/L Normal 3.3-5.1 [facility] Comment on above: Performed By: #### L 100.0100, L500.4100, [id number] #### [facility] [address] [place], [address] Sodium [Moles/Vol] 141 mmol/L Normal 133-145 [facility] Comment on above: Performed By: #### L 100.0100, L500.4100, [id number] #### [facility] [address] [place], [address] T PROT 7.2 g/dL Normal 5.9-8.4 [facility] Comment on above: Performed By: #### L 100.0100, L500.4100, [id number] #### [facility] [address] [place], [address] Urea nitrogen [Mass/Vol] 18 mg/dL Normal 4-19 [facility] Comment on above: Performed By: #### L 100.0100, L500.4100, [id number] #### [facility] [address] [place], [address] Eosinophil percentageOrdered By: Shanika Nunes on 01-30-2025 Eosinophils/100 WBC (Bld) 1.5 % 0-5 [facility] Erythrocyte distribution wid th ratioOrdered By: Shanika Nunes on 01-30-2025 Erythrocyte distribution width (RBC) [Ratio] 13.7 % 11.6-14.6 [facility] Erythrocyte distribution wid th standard deviationOrdered By: Shanika Nunes on 01-30-2025 Erythrocyte distribution width (RBC) [Ratio] 44.9 fl High 35.1-43.9 [facility] Glomerular filtration rate ( GFR) estimation/1.73 sq m using serum, plasma, or whole bOrdered By: Shanika Nunes on 01-30-2025 GFR/1.73 sq M.predicted among non-blacks MDRD (S/P/Bld) [Vol rate/Area] 87 mL/min/{1.73_m2} >60 [facility] Comment on above: mL/min/1.73m2 CKD-EP I Creatinine Equation (2020) Hematocrit Auto (Bld) [Volum e fraction]Ordered By: Shanika Nunes on 01-30-2025 Hematocrit (Bld) [Volume fraction] 39.9 % 37-47 [facility] Hemoglobin measurementOrdere d By: Shanika Des on 01-30-2025 Hemoglobin (Bld) [Mass/Vol] 13.1 g/dL 12.0-15.0 [facility] Immature granulocytes/100 WB C Auto (Bld)Ordered By: Shanika Nunes on 01-30-2025 Immature granulocytes/100 WBC (Bld) 0.200 % 0.0-0.9 [facility] Comment on above: IG% - Immature Granu locytes (promyelocytes, myelocytes and metamyelocytes) > 1% indicates that a LEFT SHIFT is Present. LDL calc ser/plasOrdered By: Shanika Nunes on 01-30-2025 Cholesterol in LDL [Mass/Vol] 132 mg/dL [facility] Comment on above: Shzqoomxnh=084-091 m g/dL & Higher Gczl=087 mg/dL or greater Laboratory - Chemistry and C hemistry - challengeOrdered By: Shanika Nunes on 01-30-2025 AST [Catalytic activity/Vol] 30 U/L <32 [facility] Lipid Profileon 01-30-2025 CHOL:HDL 3.77 Normal [facility] Comment on above: Performed By: #### L 100.0100, L500.4100, L500.4050 #### [facility] [address] [place], [address] Cholesterol [Mass/Vol] 215 mg/dL High <=200 [facility] Comment on above: Result Comment: Chol esterol level, Desirable <200 mg/dL Borderline high cholesterol 200-239 mg/dL High cholesterol >=240 mg/dL Recommendations of the NCEP Adult Treatment Panel for the following risk-cutoff thresholds for the [place] population. Performed By: #### L 100.0100, L500.4100, L500.4050 #### [facility] [address] [place], [address] Cholesterol in HDL [Mass/Vol] 57 mg/dL Normal [facility] Comment on above: Result Comment: [place] onal Cholesterol Education Program (NCEP) guidelines: <40 mg/dL: Low HDL-cholesterol (major risk factor for CHD) >= 60 mg/dL: High HDL-cholesterol (negative risk factor for CHD) HDL-cholesterol is affected by a number of factors, e.g. smoking, exercise, hormones, sex and age. Performed By: #### L 100.0100, L500.4100, L500.4050 #### [facility] [address] [place], [address] Cholesterol in LDL [Mass/Vol] 132 mg/dL Normal [facility] Comment on above: Result Comment: Bord uywedc=878-105 mg/dL Higher Mcrk=464 mg/dL or greater Performed By: #### L 100.0100, L500.4100, [id number] #### [facility] [address] [place], [address] Cholesterol in VLDL [Mass/Vol] 26 mg/dL Normal 5-40 [facility] Comment on above: Performed By: #### L 100.0100, L500.4100, [id number] #### [facility] [address] [place], [address] Triglyceride [Mass/Vol] 129 mg/dL Normal [facility] Comment on above: Result Comment: The drugs N-Acetylcysteine and Metamizole may falsely depress this assay. Normal range: <150 mg/dL Borderline High: 150-199 mg/dL High: 200-499 mg/dL Very High: >500 mg/dL Performed By: #### L 100.0100, L500.4100, L500.4050 #### [facility] [address] [place], [address] MCV (mean corpuscular volume ) determinationOrdered By: Shanika Nunes on 01-30-2025 MCV (RBC) [Entitic vol] 89.3 fL 81-99 [facility] Mean corpuscular hemoglobin (MCH) determinationOrdered By: Shanika Nunes on 01-30-2025 MCH (RBC) [Entitic mass] 29.3 pg 27.0-32.0 [facility] Mean corpuscular hemoglobin concentration (MCHC) determinationOrdered By: Shanika Nunes on 01-30-2025 MCHC (RBC) [Mass/Vol] 32.8 g/dL 32-36 [facility] Mean platelet volume determi nationOrdered By: Shanika Nunes on 01-30-2025 Platelet mean volume (Bld) [Entitic vol] 10.4 fL 6.2-12.0 [facility] Monocyte percentageOrdered B y: Shanika Nunes on 01-30-2025 Monocytes/100 WBC (Bld) 9.5 % 0-10 [facility] Neutrophil percentageOrdered By: Shanika Nunes on 01-30-2025 Neutrophils/100 WBC (Bld) 53.1 % 47-70 [facility] Nucleated red blood cell per centageOrdered By: Shanika Nunes on 01-30-2025 Nucleated RBC/100 WBC (Bld) [Ratio] 0 % 0-5 [facility] Platelet countOrdered By: Gisela Nunes on 01-30-2025 Platelets (Bld) [#/Vol] 226 10*3/uL 150-450 [facility] Potassium measurement (mass/ volume)Ordered By: Shanika Nunes on 01-30-2025 Potassium (Unsp spec) [Mass/Vol] 4.1 mmol/L 3.3-5.1 [facility] RBC Auto (Bld) [#/Vol]Ordere d By: Shanika Nunes on 01-30-2025 RBC (Bld) [#/Vol] 4.47 10*6/uL 4.2-5.4 [facility] Screening total cholesterol/ high density lipoprotein (HDL) cholesterol ratioOrdered By: Shanika Nunes on 01-30-2025 Cholesterol.total/Choles terol in HDL [Mass ratio] 3.77 {ratio} [facility] Serum creatinine measurement (mass/volume)Ordered By: Shanika Nunes on 01-30-2025 Creatinine [Mass/Vol] 0.78 mg/dL 0.70-1.20 [facility] Serum globulin measurementOr dered By: Shanika Nunes on 01-30-2025 Globulin (S) [Mass/Vol] 2.7 g/dL 2.2-4.2 [facility] Serum glucose measurement (m ass/volume)Ordered By: Shanika Nunes on 01-30-2025 Glucose [Mass/Vol] 94 mg/dL 70-99 [facility] Serum or plasma alanine gauthier otransferase (ALT) measurementOrdered By: Shanika Nunes on 01-30-2025 ALT [Catalytic activity/Vol] 45 U/L High <35 [facility] Serum or plasma albumin janes urement (mass/volume)Ordered By: Shanika Nunes on 01-30-2025 Albumin [Mass/Vol] 4.6 g/dL 3.4-4.8 [facility] Serum or plasma albumin/glob ulin mass ratioOrdered By: Shanika Nunes on 01-30-2025 Albumin/Globulin [Mass ratio] 1.7 {ratio} 0.9-2.4 [facility] Serum or plasma alkaline kem sphatase measurementOrdered By: Shanika Nunes on 01-30-2025 ALP [Catalytic activity/Vol] 79 U/L 35-104 [facility] Serum or plasma calcium janes urement (mass/volume)Ordered By: Shanika Nunes on 01-30-2025 Calcium [Mass/Vol] 9.2 mg/dL 7.6-11.0 [facility] Serum or plasma cholesterol in HDL measurement (mass/volume)Ordered By: Shanika Nunes on 01-30-2025 Cholesterol in HDL [Mass/Vol] 57 mg/dL >40 [facility] Comment on above: National Cholesterol Education Program (NCEP) guidelines:<40 mg/dL: Low HDL-cholesterol (major risk factor for CHD)>= 60 mg/dL: High HDL-cholesterol (negative risk factor for CHD)HDL-cholesterol is affected by a number of factors, e.g. smoking, exercise, hormones, sex and age. Serum or plasma cholesterol measurement (mass/volume)Ordered By: Shanika Nunes on 01-30-2025 Cholesterol [Mass/Vol] 215 mg/dL High <201 [facility] Comment on above: Cholesterol level, D esirable <200 mg/dLBorderline high cholesterol 200-239 mg/dLHigh cholesterol >=240 mg/dLRecommendations of the NCEP Adult Treatment Panel for the following risk-cutoff thresholds for the [place] population. Serum or plasma urea nitroge n measurement (mass/volume)Ordered By: Shanika Nunes on 01-30-2025 Urea nitrogen [Mass/Vol] 18 mg/dL 4-19 [facility] Sodium levelOrdered By: Shanika Nunes on 01-30-2025 Sodium [Moles/Vol] 141 mmol/L 133-145 [facility] Total proteinOrdered By: Natty Nunes on 01-30-2025 Protein [Mass/Vol] 7.2 g/dL 5.9-8.4 [facility] Triglycerides measurementOrd ered By: Shanika Nunes on 01-30-2025 Triglyceride [Mass/Vol] 129 mg/dL <199 [facility] Comment on above: The drugs N-Acetylcy steine and Metamizole may falsely depress this assay. Normal range: <150 mg/dLBorderline High: 150-199 mg/dLHigh: 200-499 mg/dLVery High: >500 mg/dL White blood cell (WBC) count Ordered By: Shanika Nunes on 01-30-2025 WBC (Bld) [#/Vol] 4.6 10*3/uL 4.4-11.0 [facility] Bedside Glucoseon 02-11-2024 FINGERSTICK GLU 92 mg/dL Normal 74-106 [facility] Comment on above: Result Comment: MADDIE GEMENT OF PATIENT CARE PER NURSING PROTOCOL Performed By: #### L 501.080 #### [facility] [address] [place], [address] FINGERSTICK GLU 193 mg/dL High 74-106 [facility] Comment on above: Result Comment: MADDIE GEMENT OF PATIENT CARE PER NURSING PROTOCOL Performed By: #### L 501.080 #### [facility] [address] [place], [address] Foot min 3 Viewson 4 Foot min 3 Views [facility] Imaging Services [address] [place] [address] Foot min 3 Views MR#: [id number] Acct: [id number] Name: RADHA MCALLISTER ANN Rep #: [id number] : 1965 F 58 From: Wilson Lugo MD PCP: Dr. Shanika Nunes, Status: REG SDC Study: Foot min 3 Views Date of Exam: 02/11/24 Exam# [id number] Ordering Dr: Demetris Rivera DPM [id number] STUDY: X-RAY - RIGHT FOOT CLINICAL: Female, [...] Signed: Wilson Lugo MD at 15:07 EDT Reading Location ID and State: [id number] [facility] [place] Service support , CC: BRENNEN Rivera; Dr. 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 Shanika Nunes, Status:REG SDC Y Race: C Location: [place] [address] Anesthesia: Postop Eval I Current Vital Signs [...] 1 completed: Yes 02/11/24 1526 Date Dariela Bullock Signature: Date CC: Signed Normal [facility] MR/[id number] 02-11-2024 MR/POSTOPAN2 [facility] Medical Records Department [address] [place] [address] Anesthesia Postop Eval II 02/11/24 1651 MR#: [id number] Acct: [id number] Name: RADHA MCALLISTER Rep #: [id number] : 1965 58 From: Lamonte Dia MD PCP: Dr. Shanika Nunes, DO Status:REG SDC Y Race: C Location: [place] [address] Anesthesia Postop Eval I Sum Postop Eval Completion status Anesthesia document: Postop Eval 1 completed: Yes Anesthesia Postop Eval I Summary Anesthesia Postop Eval I Summary: Anesthesia Postop Eval I: Assessment Summary Airway patent Yes 02/11/24 15:26 [email or web address] [email or web address] Spontaneous unlabored Yes 02/11/24 15:26 LACQUER [email or web address].CSIR respirations Mental status Awake 02/11/24 15:26 LACQUER [email or web address].CSIR nausea No 02/11/24 15:26 LACQUER [email or web address].CSIR Vomiting No 02/11/24 15:26 LACQUER [email or web address].CSIR Anesthesia Postop Eval I: Fluid Summary Crystalloid volume administer 1,500 02/11/24 15:26 LACQUER [email or web address].CSIR (ml) Colloids volume administered ( ml) Blood Product volume administered (ml) Total IV fluid infused 1,500 02/11/24 15:26 LACQUER [email or web address].CSIR Anesthesia Postop Eval I: Summary Notes Anesthesia Complication No 02/11/24 15:26 LACQUER [email or web address] Anesthesia Complication Comment: Post-operative progress note Anesthesia: Postop Eval II Evaluation Mental status: Awake and Calm Pain Level: 1 nausea: No Vomiting: No Complications Anesthesia Complication: No 02/11/24 1652 Date Lamonte Dia MD Cosigner Signature: Date CC: Signed Normal [facility] Operative Reporton 4 Operative Report [facility] Medical Records Department [address] [place] [address] Operative Report 02/11/24 1206 MR#: [id number] Acct: [id number] Name: RADHA MCALLISTER ANN Rep #: [id number] : 1965 58 From: Demetris Rivera DPM PCP: Dr. Shanika Nunes, DO Status:DEP [facility] Location: [facility] Problems Associated Problem List Diagnoses (1) Hallux [...] Capsulotomy first metatarsophalangeal joint, right foot 3. Lambert of calcaneal bone graft, right foot 4. Stress views, right foot 5. Second digit proximal interphalangeal joint arthrodesis, right foot Description of Surgical Findings:: 1. Good anatomic reduction of hallux valgus and abductor deformity, right foot 2. Good reduction and correction with apposition of the second digit hammertoe correction, right foot Surgeon: Demetris Rivera maple syrup maker: Inocencia Cali Type of Anesthesia: Block,Regional, General and Local Anesthesiologist: Tripp Flores Special Medications: Per anesthesia Specimen's removed: None Drains: None Estimated Blood Loss (mL): 30 mL Fluids Replaced: Per anesthesia Description of Procedure: Indications For Operation: Ms. Mcallister is a 58-year-old female who was admitted to [facility] for elective bunion corrective and hammer toe [...] was inflated to 275 mmHg. Procedure #1, Lambert of calcaneal bone graft, right foot (CPT code: 89785) Next, attention was directed to the lateral aspect of the right calcaneus. Using a #15 blade, a full-thickness incision, approximately 1 cm, was made down to bone without incident. Continued blunt (more content not included)... Normal [facility] Absolute lymphocyte countOrd ered By: Dr. Nunes on 12-31-2022 Lymphocytes Auto (Unsp spec) [#/Vol] 1.89 10*3/uL 0.83-4.51 [facility] Basophil percentageOrdered B y: Dr. Nunes on 12-31-2022 Basophils/100 WBC (Bld) 0.5 % 0-1 [facility] Bilirubin [Mass/Vol] 0.70 mg/dL 0.20-1.00 [facility] Comment on above: For patients on eltr ombopag therapy, use of Dimension [place] TBIL is not recommended. Chloride [Moles/Vol] 108 mmol/L 98-107 [facility] Cholesterol [Mass/Vol] 202 mg/dL <200 [facility] Comment on above: <200 mg/dL Desirable 200-240 mg/dL Borderline >240 mg/dL High Risk Eosinophils/100 WBC (Bld) 1.6 % 0-5 [facility] Glucose [Mass/Vol] 95 mg/dL 74-106 [facility] Neutrophils (Bld) [#/Vol] 2.0 10*3/uL 2.0-7.7 [facility] Neutrophils/100 WBC (Bld) 45.2 % 47-70 [facility] Potassium [Moles/Vol] 4.0 mmol/L 3.5-5.1 [facility] Protein [Mass/Vol] 8.0 g/dL 6.4-8.2 [facility] Sodium [Moles/Vol] 141 mmol/L 136-145 [facility] Triglyceride [Mass/Vol] 83 mg/dL <199 [facility] Comment on above: The drugs N-Acetylcy steine and Metamizole may falsely depress this assay.Serum Triglycerides Reference Interval Normal <150 mg/dL Borderline high 150 - 199 mg/dL High 200 - 499 mg/dL Very High > or = 500 mg/dL WBC (Bld) [#/Vol] 4.4 10*3/uL 4.4-11.0 [facility] Blood erythrocytes count (nu mber/volume)Ordered By: Dr. Nunes on 12-31-2022 RBC (Bld) [#/Vol] 4.67 10*6/uL 4.2-5.4 [facility] Blood hemoglobin measurement (mass/volume)Ordered By: Dr. Nunes on 12-31-2022 Hemoglobin (Bld) [Mass/Vol] 13.6 g/dL 12.0-15.0 [facility] Blood lymphocytes/100 leukoc ytesOrdered By: Dr. Nunes on 12-31-2022 Lymphocytes/100 WBC (Bld) 42.8 % 19-41 [facility] Blood monocytes/100 leukocyt esOrdered By: Dr. Nunes on 12-31-2022 Monocytes/100 WBC (Bld) 9.7 % 0-10 [facility] Blood platelet mean volumeOr dered By: Dr. Nunes on 12-31-2022 Platelet mean volume (Bld) [Entitic vol] 11.0 fL 6.2-12.0 [facility] Determination of erythrocyte mean corpuscular volume (MCV)Ordered By: Dr. Nunes on 12-31-2022 MCV (RBC) [Entitic vol] 92.1 fL 81-99 [facility] Hematocrit Auto (Bld) [Volum e fraction]Ordered By: Dr. Nunes on 12-31-2022 Hematocrit (Bld) [Volume fraction] 43.0 % 37-47 [facility] - Chemistry and C hemistry - challengeOrdered By: Dr. Nunes on 12-31-2022 ALP [Catalytic activity/Vol] 82 U/L 45-117 [facility] ALT [Catalytic activity/Vol] 39 U/L 13-56 [facility] CO2 [Moles/Vol] 28.0 mmol/L 21.0-32.0 [facility] Free T4 [Mass/Vol] 0.95 ng/dL 0.76-1.46 [facility] Globulin (S) [Mass/Vol] 3.7 g/dL 2.2-4.2 [facility] Urea nitrogen/Creatinine [Mass ratio] 26.4 mg/mg 10-20 [facility] - Hematology and Cell countsOrdered By: Dr. Nunes on 12-31-2022 Erythrocyte distribution width (RBC) [Entitic vol] 47.3 fL 35.1-43.9 [facility] Erythrocyte distribution width (RBC) [Ratio] 13.9 % 11.6-14.6 [facility] Immature granulocytes/100 WBC (Bld) 0.200 % 0.0-0.9 [facility] Comment on above: IG% - Immature Granu locytes (promyelocytes, myelocytes and metamyelocytes) > 1% indicates that a LEFT SHIFT is Present. MCH (RBC) [Entitic mass] 29.1 pg 27.0-32.0 [facility] Nucleated RBC/100 WBC (Bld) [Ratio] 0 % 0-5 [facility] MCHC Auto (RBC) [Mass/Vol]Or dered By: Dr. Nunes on 12-31-2022 MCHC (RBC) [Mass/Vol] 31.6 g/dL 32-36 [facility] No Panel InformationOrdered By: Dr. Nunes on 12-31-2022 Estimated GFR (MDRD) Amer 101 mL/min >60 [facility] Comment on above: GFR Calc Estimated GFR (MDRD) Non-Af Amer 83 mL/min >60 [facility] Comment on above: Non- GFR Calc Free Triiodothyronine (T3) pg/dL 2.7 pg/mL 2.18-3.98 [facility] Thyroid Stimulating Hormone (TSH) 1.04 uIU/mL 0.358-3.74 [facility] Urine Microalbumin/Creatinine Ratio 25.2 mg/g CRE <30 [facility] Platelets bldOrdered By: Dr. Nunes on 12-31-2022 Platelets (Bld) [#/Vol] 240 10*3/uL 150-450 [facility] Serum or plasma albumin janes urement (mass/volume)Ordered By: Dr. Nunes on 12-31-2022 Albumin [Mass/Vol] 4.3 g/dL 3.2-5.0 [facility] Serum or plasma albumin/glob ulin mass ratioOrdered By: Dr. Nunes on 12-31-2022 Albumin/Globulin [Mass ratio] 1.2 {ratio} 0.9-2.4 [facility] Serum or plasma calcium janes urement (mass/volume)Ordered By: Dr. Nunes on 12-31-2022 Calcium [Mass/Vol] 9.1 mg/dL 8.5-10.1 [facility] Serum or plasma cholesterol in HDL measurement (mass/volume)Ordered By: Dr. Nunes on 12-31-2022 Cholesterol in HDL [Mass/Vol] 64 mg/dL >40 [facility] Comment on above: The drugs N-Acetylcy steine and Metamizole may falsely depress this assay. Reference Range HDL <40 mg/dL Low HDL Cholesterol HDL >or= 60 mg/dL High HDL Cholesterol Serum or plasma cholesterol in VLDL measurement (mass/volume)Ordered By: Dr. Nunes on 12-31-2022 Cholesterol in VLDL [Mass/Vol] 17 mg/dL 5-40 [facility] Serum or plasma creatinine m easurement (mass/volume)Ordered By: Dr. Nunes on 12-31-2022 Creatinine [Mass/Vol] 0.76 mg/dL 0.55-1.02 [facility] Comment on above: The validity of the calculated GFR & GFRAA in patients over 70 years has not been determined. Clinical correlation is essential. Serum or plasma low density lipoprotein (LDL) cholesterol measurement (mass/volume)Ordered By: Dr. Nunes on 12-31-2022 Cholesterol in LDL [Mass/Vol] 121 mg/dL 0-130 [facility] Serum or plasma urea nitroge n measurement (mass/volume)Ordered By: Dr. Nunes on 12-31-2022 Urea nitrogen [Mass/Vol] 20 mg/dL 7-18 [facility] Thin prep Papanicolaou smear with manual screeningOrdered By: Dr. Nunes on 12-31-2022 Thin prep Papanicolaou smear with manual screening 22 U/L 15-37 [facility] Thin prep Papanicolaou smear with manual screening 5 5-15 [facility] Thin prep Papanicolaou smear with manual screening 42.6 mg/L NO RANGE EST. [facility] Urine creatinine measurement (mass/volume)Ordered By: Dr. Nunes on 12-31-2022 Creatinine (U) [Mass/Vol] 169.00 mg/dL NO RANGE EST. [facility] Vital Signs Date Time Vital Sign Value Performing Clinician Eddie morales 12-11-2022 09:36-0400 Diastolic blood pressure 84 mm[Hg] Dr. Shanika Nunes Work Phone: [facility] 12-11-2022 09:36-0400 Systolic blood pressure 136 mm[Hg] Dr. Shanika Nunes Work Phone: [facility] 12-11-2022 09:30-0400 Body height 160.[address] Shanika Nunes Work Phone: [facility] 12-11-2022 09:30-0400 Body mass index (BMI) [Ratio] 26.6 kg/m2 Dr. Shanika Nunes Work Phone: [facility] 12-11-2022 09:30-0400 Body temperature 98.4 [degF] Dr. Shanika Nunes Work Phone: [facility] 12-11-2022 09:30-0400 Body weight 68.[address] Shanika Nunes Work Phone: [facility] 12-11-2022 09:30-0400 Heart rate 116 /min Dr. Shanika Nunes Work Phone: [facility] 12-11-2022 09:30-0400 Respiratory rate 14 /min Dr. Shanika Nunes Work Phone: [facility] 12-11-2022 09:30-0400 SaO2% (BldA) [Mass fraction] 97 % Dr. Shanika Nunes Work Phone: [facility] Encounters Encounter Date Encounter Type Care Provider Facility Start: 02-07-2025 ambulatory Shanika Nunes Facility:[facility] Start: 01-30-2025 End: 01-30-[address] Shanika Nunes DO Work Phone: [facility] Work Phone: Start: 01-30-2025 End: 01-30-[address] Shanika Nunes DO -Labor[facility] [place] Work Phone: Start: 01-30-2025 End: 01-30-2025 ambulatory Shanika Nunes Facility:[facility] Start: 02-11-2024 End: 02-11-2024 ambulatory Demetris Rivera Facility:[facility] Start: 01-12-2023 End: 01-12-[address] Shanika Nunes Work Phone: [facility] Work Phone: Start: 01-12-2023 End: 01-12-[address] Shanika Nunes Work Phone: [facility] Start: 12-31-2022 End: 12-31-[address] Shaniak Nunes [facility] Start: 12-11-2022 End: 12-11-[address] Shanika Nunes Work Phone: [facility] Procedures Date Procedure Procedure Detail Performing Clinician Start: 01-12-2023 Screening mammography Merritt Nunes Work Phone: Payers Date Payer Category Payer Self-pay [id number] 2024 Unknown [id number] 2024 Unknown [id number] 2013 Private Health Insurance [employer] [id number] Unknown [id number] Unknown [id number] Unknown [id number] [id number] Social History Date Type Detail [facility] Work Phone: Start: 1965 Sex Assigned At Female [facility] Start: 12-11-2022 [facility] Start: 02-04-2024 [facility] (finding) [facility] Medical Equipment Procedure Code Equipment Code Equipment Origin al Text Equipment Identifier Dates Fusion, joint VIAFLOW, 1CC FDA Start: 02-11-2024 Fusion, joint hammertoe screw FDA Start: 02-11-2024 Fusion, joint Orthopaedic bone staple, non-adjustable [id number] FDA Start: 02-11-2024 Fusion, joint Orthopaedic bone screw (non-sliding) [id number] FDA Start: 02-11-2024 Evaluation note Note Date & Type Note Facility Evaluation note No assessment information availa ble [facility] Work Phone: Evaluation note Note Date & Type Note Facility Evaluation note Diagnosis Onset Date Acute bacterial conjunctivitis acute [facility] Work Phone: Reason for referral (narrative) Note Date & Type Note Facility Reason for referral (narrative) No reason for referral information available [facility] Work Phone: Chief Complaint and Reason for Visit Chief Complaint RT EYE/POSSILE PINK EYE SCREENING Reason for Visit Acute bacterial conj unctivitis Chief Complaint Admit Date LABS January 30, 2025 8:57 am Summary Purpose Family History No Family History Records Found Advance Directives No Advanced Directives Records Found Additional Source Comments Goals (unrecognized section and content) Goals may be documented in a n alternate sectionGoals may be documented in an alternate sectionGoals may be documented in an alternate section Care Teams (unrecognized sec tion and content) Team Status: Active Member Role Status Dates Dr. Shanika Nunes DO Family Provider Active Dr. Shanika Nunes DO Primary Care Provider Active Team Status: Inactive Member Role Status Dates Dr. Shanika Nunes DO Primary Care Provider, Referring P megander Active Roel ALTMAN, PA Attending Provider Active Team Status: Inactive Member Role Status Dates Dr. Shanika Nunes DO Primary Care Provide r, Attending Provider, Referring Provider Active Team Status: Active Member Role Status Dates Dr. Shanika Nunes DO Primary Care Provider Active Team Status: Inactive Member Role Status Dates Dr. Shanika Nunes DO Primary Care Provider Active Start: January 30, 2025 End: January 30, 2025 Dr. Shanika Nunes DO Attending Provider Active St art: January 30, 2025 End: January 30, 2025 Dr. Shanika Nunes DO Referring Provider Active St art: January 30, 2025 End: January 30, 2025 INFORMATION SOURCE (unrecogn ized section and content) DATE CREATED AUTHOR 02/06/2025 [facility] FOR RECORDS PERTAINING TO PATIENTS WHO ARE [...] BE BASED ON THE PRIMARY CLINICAL RECORDS. [facility] [employer] provides no warranty or guarantee of the accuracy or completeness of information in this document.
== END | disposition home or self-care (01) ==
LOC: OPBI 07:05
PROVIDERS: PCP Family Medicine; Referring Provider Family Medicine; Visit Provider Family Medicine
DX: Z12.31 Encounter for screening mammogram for malignant neoplasm of breast (principal)
CPT/HCPCS: 77063; 77067